=== PATIENT | female | born 1970 | race Caucasian/White ===

== ENCOUNTER 2019-09-28 09:10 | Emergency (ER) | payer OTHER, SELFPAY ==
[2019-09-28] VITALS (14 sets, daily range): BP systolic 131–171; BP diastolic 72–100; PULSE 76–104; RESP 12–26; TEMP 36.2; O2SAT 97–100
--- NOTE | ~2019-09-28 | XR_ITS ---
EXAMINATION: XR chest 2V DATE: 09/28/2019 09:55 INDICATION: Palpitations. TECHNIQUE: Frontal and lateral views of the chest were obtained. COMPARISON: Chest single view 12/10/2007 FINDINGS: The chest demonstrates clear lungs without pneumonia, pleural effusion, or pneumothorax. Th e heart size is normal. IMPRESSION: 1. No acute cardiopulmonary disease. Reviewed, dictated and finalized at location A. NESS ANALYTICS ANALYST
--- NOTE | 2019-09-28 09:27 | ECG_ITS ---
Measurements Intervals [place] Rate: 98 P: 39 NE: 128 QRS: 17 QRSD: 78 T: 13 QT: 357 QTc: 456 Interpretive Statements SINUS RHYTHM BORDERLINE ST-T WAVE ABNORMALITY- INF/LAT LEADS BASELINE WANDER- III, V4-V6 BORDERLINE ECG Electronically Signed On 09-28-2019 10:08:19 BATH STEWARD/STEWARDESS by Bennie Raphael D.O.
--- NOTE | 2019-09-28 09:31 | ED.ARRPALP ---
HPI - Arrhythmia/Palpitations General Chief Complaint: Arrhythmia/Palpitations Stated Complaint: palpitations Time Seen by Provider: 09/28/19 09:25 Source: patient Mode of arrival: ambulatory Limitations: no limitations History of Present Illness HPI narrative: Pt is a 49 y/o female who presents to the ED with c/o palpitations for a week. Pt has a H/o an irregular heartbeat but it has never lasted this long for her. She states that she gets it every few minutes and it goes away. Pt notes that this morning the palpitations were more intense and she felt it going up to her throat. She denies vomiting, CP, SOB, or lightheadedness. She states that she has worn a Holter monitor in the past but she does not have a PCP or a regulatory consultant that she follows up with. Pt notes that she had the stomach flu about 3 weeks ago that only lasted 3 days and she feels better. complaint: irregular heart beat Onset (ago): week(s) (1) Duration: constant Severity: similar to previous episodes Associated symptoms: denies other symptoms Related Data Home Medications Medication Instructions Recorded Confirmed alprazolam 09/28/19 Allergies Allergy/AdvReac Type Severity Reaction Status Date / Time Penicillins Allergy Mild RASH Unverified 09/28/19 09:24 Review of Systems Review of Systems: Narrative: CARDIOVASCULAR: Reports palpitations. Denies CP RESPIRATORY: Denies dyspnea. GASTROINTESTINAL: Denies vomiting NEUROLOGIC: Denies lightheadedness All systems reviewed & are unremarkable except as noted in HPI and below PMFSH Past Medical History Medical History (Updated 09/28/19 @ 10:34 by Sarah Sloan MD) Anxiety Irregular heart rate Seasonal allergies Surgical History Surgical History (Updated 09/28/19 @ 09:56 by Beba Bosch) No significant past surgical history Social History Social History (Updated 09/28/19 @ 09:56 by Beba Bosch) Smoking status: Never smoker Gender identity (if verbalized by the patient): Female Exam Narrative: Exam Narrative: GENERAL: Well-appearing, well-nourished, and in no acute distress. HEAD: Normocephalic, atraumatic. EYES: PERRLA and EOMI. ENT: Nares clear, no rhinorrhea or epistaxis. Mucous membranes moist. NECK: Supple. CHEST: Clear to auscultation. No respiratory distress. HEART: Regular rate and rhythm. No murmur heard. Normal peripheral pulses. ABDOMEN: Soft, nontender, nondistended, normal active bowel sounds. EXTREMITIES: Normal range of motion. No edema. SKIN: Warm, dry, no rash. NEURO: No focal deficits. Alert and oriented X3. Course Course Emergency Course: Patient presents to the emergency department for evaluation of palpitations. Patient has a longstanding history of these, states in the past she has not been found to have any arrhythmia. Patient denies any chest pain or shortness of breath. At the time of initial assessment, ABCs are intact, vital signs are stable. Patient has a PVC about once every 5-10 beats on the telemetry. EKG without any acute ischemic findings. Initial troponin is normal. As patient symptoms have been present for a week, we will arrange cardiology follow-up, and she may see them for her PVCs which are symptomatic. Patient without any electrolyte derangements. I do not suspect any medications or ingestion causing this. Patient was then discharged home in stable condition. Vital Signs Vital signs: Vital Signs Temperature 36.2 C L 09/28/19 09:18 Pulse Rate 104 H 09/28/19 09:18 Respiratory Rate 18 09/28/19 09:18 Blood Pressure 155/100 H 09/28/19 09:18 Pulse Oximetry 100 09/28/19 09:18 Temperature 36.2 C L 09/28/19 09:18 Pulse Rate 80 09/28/19 10:45 Respiratory Rate 21 H 09/28/19 10:45 Blood Pressure 131/80 09/28/19 10:45 Pulse Oximetry 97 09/28/19 10:45 MDM - Arrhythmia/Palpitations Lab Data Result diagrams: 09/28/19 09:32 09/28/19 10:00 Labs: Lab Results 09/28/19
[2019-09-28] MEDS: ASPIRIN 81 MG CHEWABLE TABLET 324 MG PO (09:39)
[2019-09-28 09:46] LABS: Basophils Absolute Auto 0.1 K/mm3 (0.0-0.1); Basophils Percent Auto 0.7 % (0.2-1.2); Eosinophils Absolute Auto 0.2 K/mm3 (0-0.3); Eosinophils Percent Auto 1.6 % (0-4.4); Hematocrit 41.6 % (37.0-47.0); Hemoglobin 13.9 g/dL (12.0-15.0); Immature Granulocyte Absolute 0.05 K/mm3 (0.00-0.031); Immature Granulocyte Percent A 0.5 % (0-0.5); Lymphocytes Percent Auto 25.6 % (18.3-44.2); Mean Corpuscular HGB Conc 33.4 g/dl (32-36); Mean Corpuscular Volume 92.7 fl (80-100); Mean Platelet Volume 10.9 fl (7.4-10.4); Monocytes Absolute Auto 0.9 K/mm3 (0.1-0.6); Monocytes Percent Auto 7.8 % (2.6-8.5); Neutrophils Percent Auto 63.8 % (45.5-73.1); Platelet Count Result 334 k/mm3 (150-375); Red Blood Count 4.49 M/mm3 (4.2-5.4); Red Cell Distribution Width 13.3 % (11.5-14.5); White Blood Count 10.9 K/mm3 (4.5-10.0)
--- NOTE | 2019-09-28 09:50 | PC.NURSE ---
Pt resting in stretcher at, even chest rise and fall observed. Pt vitals signs stable, Pt A&Ox4, denies any concerns at this time. Call light within reach. Will continue to monitor.
[2019-09-28 09:53] LABS: INR 0.9; Prothrombin Time 11.8 Seconds (11.1-14.7)
[2019-09-28 09:54] LABS: Partial Thromboplastin Time 27.1 SECONDS (22.3-36.8)
[2019-09-28 10:27] LABS: Blood Urea Nitrogen 12 mg/dL (7-17); Calcium 9.1 mg/dL (8.4-10.2); Carbon Dioxide 21 mmol/L (22-30); Chloride 103 mmol/L (98-107); Estimated CRCL calculation 104 ml/min; Estimated Glomerular Filt Rate > 60; Glucose 94 mg/dL (65-105); Sodium 141 mmol/L (137-145)
[2019-09-28 10:29] LABS: Troponin I < 0.012 ng/mL (0.000-0.034)
== END 2019-09-28 11:33 | disposition home or self-care (01) ==
PROVIDERS: Emergency Provider Emergency Medicine
DX: R00.2 Palpitations (principal); I49.3 Ventricular premature depolarization; F41.9 Anxiety disorder, unspecified; R94.31 Abnormal electrocardiogram [ECG] [EKG]
CPT/HCPCS: 36415; 71046; 80048; 84484; 85025; 85610; 85730; 93005; 99284; A9270

== ENCOUNTER 2020-06-07 12:50 | Outpatient (CLI) | payer OTHER, SELFPAY ==
--- NOTE | ~2020-06-07 | MM_ITS ---
EXAMINATION: MM screening [facility] BI w sabiha HISTORY: Screening mammogram TECHNIQUE: Craniocaudal and mediolateral oblique 3-D tomosynthesis images were obtained and synthetic 2-D images were generated. CAD analysis was submitted and interpreted. COMPARISON: 04/06/2019, 11/06/2015, 10/12/2012 BREAST PARENCHYMAL COMPOSITION: There are scattered areas of fibroglandular density. FINDINGS: There is no evidence of suspicious mass, calcification, or architectural distortion to sugg est malignancy in either breast. There has been no suspicious interval change. IMPRESSION: 1. No mammographic evidence of malignancy. 2. Recommend routine screening mammography in one year. BI-RADS Category 1: Negative Reviewed, dictated and finalized at location A. ER MACHINE
--- NOTE | ~2020-06-07 | DEXA_ITS ---
Bone Density Report Name: Ghislaine Blum Age: 49 Sex: Female Ethnicity: White Date of : 1970 Indication: height loss; Referring Provider: CARLOS, LAUREL Study: Bone densitometry was performed. Exam Date: June 07, 2020 Accession number: [id number] Bone Density: Region BMD T-score Z-score Classification AP Spine (L1, L3) 1.134 1.1 1.9 Normal Femoral Neck (Left) 0.934 0.8 1.6 Normal Total Hip (Left) 1.151 1.7 2.2 Normal Total Hip Bilateral Avg 1.169 1.9 2.4 Normal Femoral Neck (Right) 0.975 1.1 2.0 Normal Total Hip (Right) 1.186 2.0 2.5 Normal World Health Organization criteria for BMD impression classify patients as: Normal (T-score at or above -1.0), Osteopenia (T-score between -1.0 and -2.5), or Osteoporosis (T-score at or below -2.5). 10-year Fracture Risk: FRAX not reported because: Premenopausal woman All T-scores for Spine Total, Hip Total, Femoral Neck at or above -1.0 Clinical Information Provided by Patient: Patient maximum height was 66 No regular weight bearing exercise Drinks caffeinated beverages Onset of menses at age 9 Premenopausal Number of children 1 Impression: The patient's bone mass is within expected range for age, gender and ethnicity. Discussion: BONE DENSITY IS WITHIN EXPECTED LIMITS FOR AGE, SEX AND RACE. Bone density is within expected limits for age, sex and race at all sites measured. The patient should follow a healthful lifestyle (good nutrition with adequate calcium and vitamin D, and appropriate weight-bearing exercise). Follow-Up: Consider repeating this study in 5 years or sooner if there is some new clinical indication. Reported by: [facility] on 06/07/2020 1:20:00 PM. Reviewed, dictated and finalized at location AJose MORALES
== END 2020-06-07 12:51 | disposition home or self-care (01) ==
LOC: ANHIMG 12:54
PROVIDERS: PCP Nurse Practitioner Adult Health; Visit Provider Nurse Practitioner Adult Health
DX: Z12.31 Encounter for screening mammogram for malignant neoplasm of breast (principal); Z13.820 Encounter for screening for osteoporosis
CPT/HCPCS: 77063; 77067; 77080

== ENCOUNTER 2022-09-08 00:50 | Observation (INO) | payer OTHER, SELFPAY ==
[2022-09-08] VITALS (26 sets, daily range): BP systolic 109–149; BP diastolic 63–85; PULSE 71–100; RESP 12–28; TEMP 36.4–37.2; O2SAT 96–100
--- NOTE | ~2022-09-08 | CT_ITS ---
EXAMINATION: CTA chest abdomen pelvis DATE: 09/08/2022 03:26 INDICATION: Left chest pain radiating to back and left arm TECHNIQUE: Computed tomography angiography (CTA) of the chest was performed with 100 mL Omnipaque-350 intravenous contrast timed to evaluate the pulmonary arteries. Coronal maximum intensity projection 3D-reconstructions were created by the technologist. Automated exposure control and iterative reconst ruction technique were employed. Exam dose: 1182.07 mGy-cm total exam DLP. COMPARISON: September 08, 2022 2 view chest FINDINGS: 4 mm right lower lobe pulmonary nodule. If there is low risk, no follow-up is necessary. For high ris k patients with smoking history or other known risk factors,(s) CT chest follow-up in 12 months november e performed. No pulmonary infiltrate or consolidation or pulmonary mass lesion is noted otherwise. Normal heart size. No thoracic aortic aneurysm or dissection. No hilar or mediastinal mass lesion or lymphadenopathy. No pericardial or pleural effusion. Small sliding hiatal hernia. No hepatic, splenic, pancreatic, and adrenal or right renal space-occupying mass lesion. 3 cm exophytic lower pole left renal cyst. No urinary tract calculus or hydroureteronephrosis. The urinary bladder is unremarkable. 11 mm AP dimension of the endometrial cavity. The uterus measures approximately 9.5 cm height, 5.7 cm anteroposterior dimension. No bowel obstruction, bowel wall thickening, pneumatosis or intraperitoneal free air. Normal caliber of the abdominal aorta. No intraperitoneal or retroperitoneal or pelvic mass lesion or adenopathy or ascites. Included skeletal structures are unremarkable; no suspicious osteolytic or osteoblastic lesions are n oted. IMPRESSION: 4 mm right lower lobe nodule; if there is high risk, consider CT chest follow-up examination 12 month s Small sliding hiatal hernia 3 cm exophytic lower pole left renal cyst Endometrial cavity measures up to 11 mm AP dimension; clinical correlation is recommended Reviewed, dictated and finalized at Location A. Reviewed, dictated and finalized at location A. OSIVE ORDNANCE MANAGER IMPRESSION: 4 mm right lower lobe nodule; if there is high risk, consider CT chest follow-u p examination 12 months Small sliding hiatal hernia 3 cm exophytic lower pole left renal cyst Endometrial cavity measures up to 11 mm AP dimension; clinical correlation is r ecommended
--- NOTE | ~2022-09-08 | XR_ITS ---
XR chest 2V DATE: 09/08/2022 01:31 INDICATION: Left chest pain radiating to back and left arm TECHNIQUE: PA and lateral views COMPARISON: None FINDINGS: Normal heart size. No hilar or mediastinal enlargement. The lungs are normally inflated and clear of infiltrate or consolidation. No pleural effusion or pulmonary vascular congestion or pneumo thorax. IMPRESSION: Negative Reviewed, dictated and finalized at location A. L DOCUMENT SPECIALIST IMPRESSION: Negative
--- NOTE | ~2022-09-08 | NM_ITS ---
EXAMINATION: NM stress w perf spect multi DATE: 09/09/2022 11:30 INDICATION: Chest pain. TECHNIQUE: Rest images were obtained following intravenous administration of 11.5 mCi Tc99m tetrofosm in (Myoview). The patient performed an exercise activity. At peak exercise, 34.9 mCi Tc99m tetrofosmi n (Myoview) was administered intravenously, and stress images were obtained. Data was reconstructed i nto short axis and horizontal and vertical long axis SPECT images. Gated SPECT images were also obtai alseha. COMPARISON: Chest CT 09/08/2022 FINDINGS: There is no definite reversible or fixed perfusion abnormality to suggest ischemia or infar ction. There is no segmental wall motion abnormality. Left ventricular ejection fraction measures > 70%. IMPRESSION: 1. No definite ischemia or infarct. 2. Normal left ventricular ejection fraction measuring >70%. Reviewed, dictated and finalized at location A. NER FIXER
--- NOTE | 2022-09-08 00:51 | ECG_ITS ---
Measurements Intervals [place] Rate: 87 P: 31 DE: 140 QRS: 16 QRSD: 87 T: 29 QT: 357 QTc: 430 Interpretive Statements SINUS RHYTHM NONSPECIFIC ST CHANGES COMPARED TO ECG 09/28/2019 09:19:41 NO SIGNIFICANT CHANGE Electronically Signed On 09-08-2022 8:29:41 STATISTICAL CLERK ADVERTISING by Venecia Tong M.D.
[2022-09-08 01:18] LABS: Basophils Absolute Auto 0.1 K/mm3 (0.0-0.1); Basophils Percent Auto 0.7 % (0.2-1.2); Eosinophils Absolute Auto 0.3 K/mm3 (0-0.3); Eosinophils Percent Auto 2.6 % (0-4.4); Hematocrit 40.1 % (37.0-47.0); Hemoglobin 13.3 g/dL (12.0-15.0); Immature Granulocyte Absolute 0.04 K/mm3 (0.00-0.031); Immature Granulocyte Percent A 0.4 % (0-0.5); Lymphocytes Absolute Auto 3.35 K/mm3 (0.9-3.2); Lymphocytes Percent Auto 33.6 % (18.3-44.2); Mean Corpuscular HGB Conc 33.2 g/dl (32-36); Mean Corpuscular Hemoglobin 31.1 pg (26-34); Mean Corpuscular Volume 93.7 fl (80-100); Mean Platelet Volume 10.2 fl (7.4-10.4); Monocytes Absolute Auto 0.6 K/mm3 (0.1-0.6); Monocytes Percent Auto 5.9 % (2.6-8.5); Neutrophils Absolute Auto 5.7 K/mm3 (1.3-6.7); Neutrophils Percent Auto 56.8 % (45.5-73.1); Platelet Count Result 298 k/mm3 (150-375); Red Blood Count 4.28 M/mm3 (4.2-5.4)
[2022-09-08 01:33] LABS: Alanine Aminotransferase 22 U/L (6-35); Albumin Level 4.6 g/dL (3.5-5.1); Alkaline Phosphatase 89 U/L (38-126); Anion Gap 7 mmol/L (8-16); Aspartate Amino Transferase 29 U/L (14-36); Bilirubin,Total 0.5 mg/dL (0.2-1.3); Blood Urea Nitrogen 18 mg/dL (7-17); Calcium 9.2 mg/dL (8.4-10.2); Carbon Dioxide 27 mmol/L (22-30); Chloride 104 mmol/L (98-107); Estimated Glomerular Filt Rate > 60; Glucose 94 mg/dL (65-110); Lipase 150 U/L (23-300); Potassium 3.9 mmol/L (3.4-5.0); Sodium 138 mmol/L (137-145)
--- NOTE | 2022-09-08 01:43 | ED.GENADULT ---
HPI - General Adult General Chief complaint: Chest Pain Stated complaint: Chest pain Time Seen by Provider: 09/08/22 01:28 History of Present Illness HPI narrative: The 52-year-old female presenting ED with a chief complaint of chest pain. The pain started at 12:30 p.m. tonight. the chest pain is describes an achy pain that radiates to her back and her left arm. When it 1st started she describes weakness in her left arm that has since resolved. It was originally 8/10 in intensity but is improving. She has never experienced pain like this before and there is no alleviating or exacerbating factors. Chest pain was associated with diaphoresis. There was no vomiting, fever, chills, productive cough, the patient has said that her brother was recently diagnosed with an aortic dissection. Patient notes that she has spent the weekend at a sporting event sitting in on a hard wooden bench. She has a history of chronic back pain. Patient's leadership coach is Dr. Samuels. Related Data Home Medications Medication Instructions Recorded Confirmed alprazolam 0.5 mg tablet 09/28/19 lisinopril 10 mg tablet mg 09/08/22 montelukast 10 mg tablet mg 09/08/22 Allergies Allergy/AdvReac Type Severity Reaction Status Date / Time Penicillins Allergy Mild RASH Verified 09/08/22 01:02 PENDING SALE TO [facility] Past Medical History Medical History Anxiety Irregular heart rate Seasonal allergies Surgical History Surgical History No significant past surgical history Social History Social History Smoking status: Never smoker Gender identity (if verbalized by the patient): Female Exam Narrative: APPEARANCE: No apparent distress. patient is pleasant polite during the interview Head: atraumatic. EYES: EOMI, NOSE: Atraumatic NECK: Trachea midline RESPIRATORY: No increased rate of breathing, clear to auscultation in all phillips CARDIOVASCULAR: RRR,, equal pulses in all 4 extremities ABDOMINAL: Non-distended MUSCULOSKELETAl: No obvious deformities NEURO: Alert. Cranial nerves 2-12 grossly intact. Sensation light touch, motor function cerebellar function intact for 4 extremities. Gait exam was normal. SKIN:: Warm, dry. Normal color PSYCHIATRIC: Normal affect Course Vital Signs Vital signs: Vital Signs Temperature 97.5 F L 09/08/22 00:58 Pulse Rate 86 09/08/22 00:58 Respiratory Rate 19 09/08/22 00:58 Blood Pressure 149/81 H 09/08/22 00:58 Pulse Oximetry 100 09/08/22 00:58 Oxygen Delivery Room Air 09/08/22 00:58 Temperature 97.5 F L 09/08/22 00:58 Pulse Rate 72 09/08/22 02:46 Respiratory Rate 15 09/08/22 02:46 Blood Pressure 118/63 09/08/22 02:46 Pulse Oximetry 98 09/08/22 02:46 Oxygen Delivery Room Air 09/08/22 02:30 Medical Decision Making MDM Narrative Medical decision making narrative: -Presentation: 52-year-old female presenting to ED with chest and back pain. Family history of aortic dissection. ACS workup, CTA been ordered. -DDX includes but is not limited to: ACS, muscle strain, aortic dissection, pneumonia -Co-morbidities complicating care: chronic back pain, anxiety, family history of aortic dissection, hypertension -Social determinants of health: patient lives at home with her -External Chart Review: none -Hx from independent Sources: -Discussion of Management/Consultants: none -Independent interpretation of studies: CBC BMP within normal limits. Initial troponin was undetectable. Second troponin trended up to 0.015 but was still within normal range. Chest x-ray was negative for acute cardiopulmonary process My interpretation is CTA showed no evidence of aortic dissection or pulmonary embolism or pneumonia. Official read will be performed in the morning. Independent E
[2022-09-08 01:44] LABS: Troponin I < 0.012 ng/mL (0.000-0.034)
[2022-09-08 04:33] LABS: Troponin I 0.015 ng/mL (0.000-0.034)
[2022-09-08 04:43] LABS: Prothrombin Time 12.8 Seconds (11.1-14.7)
[2022-09-08] MEDS: ASPIRIN 81 MG CHEWABLE TABLET 324 MG PO (05:28)
[2022-09-08 07:41] LABS: Troponin I < 0.012 ng/mL (0.000-0.034)
[2022-09-08 07:51] LABS: Influenza A QL RT-PCR Negative (Negative); Influenza B QL RT-PCR Negative (Negative); SARS-CoV-2 RNA PCR Negative
--- NOTE | 2022-09-08 11:32 | PM.IMHP ---
H&P: HPI History of Present Illness Date/Time: 09/08/22 11:32 Chief Complaint: chest Pain Narrative: This is a 52-year-old female with past medical history of frequent PVCs anxiety disorder chronic back pain presents with complaint of chest pain that woke her up in the middle the night last night. She reports that the chest pain is precordial in location and radiated to her left arm severe intensity by teen. The pain is described as achy pain that radiated to her back at about the same location on the left side thoracic area. She reports she does have neck problem and gives to chiropractor almost every week. For past few years she has not any imaging on her neck in the past the pain however was different from which she use to have pain. It is chest pain is associated with diaphoresis with no vomiting or nausea. There is no fever chills or cough. She also mentions a family history of significant coronary artery disease. Her brother was also recently diagnosed aortic dissection. She also had been to [employer] a in a sporting event and was sitting in a [employer] in [place] and was driving through this trip. She has seen Dr. Aavlos for her heart. She is not on any medications. She has not had any stress test done in the past. Review of Systems Review of Systems: - CONSTITUTIONAL: Denies weight loss, fever and chills. - HEENT: Denies changes in vision and hearing - RESPIRATORY: Denies SOB and cough. - CV: Denies palpitations and Reports CP. - GI: Denies abdominal pain, nausea, vomiting and diarrhea. - : Denies dysuria and urinary frequency. - MSK: Denies myalgia and joint pain. - SKIN: Denies rash and pruritus. - NEUROLOGICAL: Denies headache and syncope. - PSYCHIATRIC: Denies recent changes in mood. Denies anxiety and depression. [facility] Past Medical History Medical History Anxiety Irregular heart rate Seasonal allergies Surgical History Surgical History No significant past surgical history Social History Social History Smoking status: Never smoker Gender identity (if verbalized by the patient): Female Meds Home Medications and Allergies Home Medications Medication Instructions Recorded Confirmed Type alprazolam 0.5 mg tablet 0.5 mg PO PRN PRN Anxiety 09/28/19 09/08/22 History cetirizine 10 mg tablet (Zyrtec) 10 mg PO DAILY 09/08/22 09/08/22 History famotidine 20 mg tablet (Pepcid) 20 mg PO PRN PRN Acid Reflux 09/08/22 09/08/22 History fluticasone propionate 50 2 spray intranasal DAILY 09/08/22 09/08/22 History mcg/actuation nasal spray,suspension lisinopril 10 mg tablet 10 mg PO DAILY 09/08/22 09/08/22 History montelukast 10 mg tablet 10 mg PO DAILY 09/08/22 09/08/22 History Allergies Allergy/AdvReac Type Severity Reaction Status Date / Time Penicillins Allergy Mild RASH Verified 09/08/22 10:26 Vital Signs Vital Signs - 24 hr 09/08/22 00:58 09/08/22 01:17 09/08/22 01:21 Temperature 97.5 F L Pulse Rate 86 85 Respiratory Rate 19 28 H Blood Pressure 149/81 H 135/85 Pulse Oximetry 100 99 100 Oxygen Delivery Room Air Room Air 09/08/22 01:23 09/08/22 01:18 09/08/22 01:59 Temperature Pulse Rate 85 81 78 Respiratory Rate 18 17 Blood Pressure 135/85 109/66 Pulse Oximetry 98 100 Oxygen Delivery 09/08/22 02:01 09/08/22 02:31 09/08/22 02:30 Temperature Pulse Rate 71 75 75 Respiratory Rate 19 14 17 Blood Pressure 119/72 120/65 120/65 Pulse Oximetry 99 99 99 Oxygen Delivery Room Air 09/08/22 02:46 09/08/22 02:47 09/08/22 04:36 Temperature Pulse Rate 72 74 76 Respiratory Rate 15 16 19 Blood Pressure 118/63 Pulse Oximetry 98 98 98 Oxygen Delivery 09/08/22 04:45 09/08/22 05:00 09/08/22 05:15 Temperature Pulse Rate 79 90 81 Respiratory Rate 16 19 17 Blood Pres
--- NOTE | 2022-09-08 15:40 | PM.CNCAR ---
Assessment and Plan Assessment and plan (1) Chest pain: Code(s): R07.9 - Chest pain, unspecified Status: Acute Assessment and Plan: Patient had about an hour of chest pain early this morning. 1 troponin was slightly above normal. EKG has some changes but these appear chronic. She has risk factors for CAD with hypertension, and a family history as well as borderline cholesterol problems. She was concerned about her risk of aortic dissection, since her brother had that last fall, but her CT did not show any evidence of aneurysm or dissection. -- Agree with ischemia evaluation. Patient can walk on the treadmill well so will schedule a stress Cardiolite. -- Most likely this is musculoskeletal chest pain (2) Hypertension: Code(s): I10 - Essential (primary) hypertension Status: Acute Assessment and Plan: controlled on medication (3) Family history of premature CAD: Code(s): Z82.49 - Family history of ischemic heart disease and other diseases of the circulatory system Status: Acute Assessment and Plan: continue primary prevention History of Present Illness History of Present Illness Consult date/time: 09/08/22 15:40 Reason For Visit: Mod Risk CP Narrative: Ghislaine Blum is a 52-year-old female whom we were asked to see at the request of Dr. Pompa for advice and opinion regarding her chest pain in consultation. She is followed by Dr. Avalos for hypertension, palpitations, PVCs and family history of aortic dissection. On her last office visit,Her blood pressure was controlled and she had infrequent palpitations. There was discussion of obtaining an echo in perhaps a CT because of her brother's recent aortic dissection and concern about familial predisposition. Ms Blum has chronic intermittent chest pains, arm pains, and back pains. The patient developed left parasternal chest pain at 12:30 a.m. which awoke her from sleep and radiated to the left paravertebral areas well as the left arm. It was a strong ache.This was of concern because she does not get all these types of pain at the same time, and was more intense than usual. There were no associated symptoms , except for some sweatiness. The patient arrived to emergency room around 130 and her discomfort resolved after an aspirin. Troponins are 0.012, 0.015 and 0.012. She has been busy; her daughter is in wrestling and she has been driving back and forth to [place] for the [employer]. She also does lifting at her job, which is working at the historic [employer] in [place]. Normally she can walk fast exert with no particular problems with any chest discomfort but she may have some dyspnea which she blames on her weight. Review of Systems Constitutional: Constitutional: Denies fever(s) Eyes: Eyes: Reports no additional eye complaints ENT: Denies epistaxis Cardiovascular: Cardiovascular: Denies chest pain, Denies pedal edema, Denies lightheadedness and Denies dyspnea Respiratory: Respiratory: Denies chest congestion and Denies dyspnea Gastrointestinal: Gastrointestinal: Denies abdominal pain and Denies hematochezia Musculoskeletal: Musculoskeletal: Reports back pain, Reports myalgias and Reports neck pain Integumentary/Breasts: Skin/Breast: Reports system reviewed and no additional complaints, except as docu Neurologic: Reports system reviewed and no additional complaints, except as documented, Denies behavioral changes and Denies confusion Psychiatric: Psychiatric: Denies behavioral changes and Denies confusion [facility] Past Medical History Medical History (Updated 09/08/22 @ 17:39 by Venecia Tong MD) Anxiety Family history of premature CAD Hypertension Irregular heart rate Seasonal allergies Surgical History Surgical History No significant past surgical history Family History Family History (Updated 09/08/22 @ 1
[2022-09-09] VITALS: PULSE 75
--- NOTE | 2022-09-09 | EST_ITS ---
Patient Info Name: Ghislaine Blum Age: 52 years : 1970 Gender: Female Ht: 65 in Wt: 219 lbs BSA: 2.18 m2 HR: 79 bpm BP: 143 / 87 mmHg Heart Rhythm: Sinus Rhythm Exam Date: 09/09/2022 10:22 AM Exam Location: [facility] Stress Patient Status: Inpatient Admit Date: 09/08/2022 Staff Ordering Physician: Venecia Tong MD Attending Provider: Cali Harrington MD Exercise Technologist: Renetta Goins CT Nurse: CANDI FOOTE Exam Type: CA stress test treadmill w NM Study Info Indications R07.9 - Chest pain, unspecified A nuclear stress test was performed. Summary 1. Normal sinus rhythm. 2. Resting ST/T wave changes. 3. Minor exaggeration of resting ST segment abnormality not diagnostic of ischemia. 4. Clinically and electrocardiographically negative exercise stress test to 98% of age predicted maximum heart rate. 5. Myocardial perfusion imaging results to be reported by Radiology. Protocol: [facility] Stress ECG Details Stage: REST Duration (min): 1 min : 1 sec Speed (mph): 0.0 Grade (%): 0 HR (bpm): 86 SBP (mmHg): 143 DBP (mmHg): 87 METS: --- Stage: REST Duration (min): 9 min : 26 sec Speed (mph): 0.0 Grade (%): 0 HR (bpm): 82 SBP (mmHg): 143 DBP (mmHg): 87 METS: --- Stage: STAGE 1 Duration (min): 1 min : 0 sec Speed (mph): 1.7 Grade (%): 10 HR (bpm): 108 SBP (mmHg): 143 DBP (mmHg): 87 METS: --- Stage: STAGE 1 Duration (min): 2 min : 0 sec Speed (mph): 1.7 Grade (%): 10 HR (bpm): 125 SBP (mmHg): 143 DBP (mmHg): 87 METS: --- Stage: STAGE 1 Duration (min): 3 min : 0 sec Speed (mph): 1.7 Grade (%): 10 HR (bpm): 124 SBP (mmHg): 171 DBP (mmHg): 96 METS: --- Stage: STAGE 2 Duration (min): 1 min : 0 sec Speed (mph): 2.5 Grade (%): 12 HR (bpm): 135 SBP (mmHg): 171 DBP (mmHg): 96 METS: --- Stage: STAGE 2 Duration (min): 2 min : 0 sec Speed (mph): 2.5 Grade (%): 12 HR (bpm): 149 SBP (mmHg): 160 DBP (mmHg): 85 METS: --- Stage: STAGE 2 Duration (min): 3 min : 0 sec Speed (mph): 2.5 Grade (%): 12 HR (bpm): 148 SBP (mmHg): 160 DBP (mmHg): 85 METS: --- Stage: STAGE 3 Duration (min): 1 min : 0 sec Speed (mph): 3.4 Grade (%): 14 HR (bpm): 159 SBP (mmHg): 138 DBP (mmHg): 73 METS: --- Stage: STAGE 3 Duration (min): 1 min : 55 sec Speed (mph): 3.4 Grade (%): 14 HR (bpm): 163 SBP (mmHg): 138 DBP (mmHg): 73 METS: --- Stage: RECOVERY Duration (min): 0 min : 4 sec Speed (mph): 1.5 Grade (%): 0 HR (bpm): 164 SBP (mmHg): 138 DBP (mmHg): 73 METS: --- Stage: RECOVERY Duration (min): 1 min : 4 sec Speed (mph): 0.0 Grade (%): 0 HR (bpm): 142 SBP (mmHg): 138 DBP (mmHg): 73 METS: --- Stage: R
[2022-09-09 04:00] VITALS: PULSE 67
[2022-09-09 06:00] VITALS: BP 132/76; PULSE 91; RESP 16; TEMP 36.6; O2SAT 99
[2022-09-09 08:00] VITALS: PULSE 87
[2022-09-09] MEDS: MONTELUKAST SODIUM 10 MG TABLET PO (08:01)
[2022-09-09] MEDS: lisinopriL 10 MG TABLET PO (08:01)
[2022-09-09] MEDS: FLUTICASONE PROPIONATE 0.05% NA SPR 16 GM BTL (*BKC) 2 SPRAY NASAL (08:02)
[2022-09-09 12:00] VITALS: PULSE 87
--- NOTE | 2022-09-09 12:24 | PM.PNCARD ---
Progress Note: A&P Assessment and Plan (1) Chest pain: Code(s): R07.9 - Chest pain, unspecified Status: Acute Assessment and Plan: No recurrence of chest pain since admission -- Nuclear treadmill stress test negative for any ischemia, EF 70% -- Most likely this is musculoskeletal chest pain -- No further cardiac workup recommended (2) Hypertension: Code(s): I10 - Essential (primary) hypertension Status: Acute Assessment and Plan: controlled on medication (3) Family history of premature CAD: Code(s): Z82.49 - Family history of ischemic heart disease and other diseases of the circulatory system Status: Acute Assessment and Plan: continue primary prevention Subjective Date/time seen: 09/09/22 12:24 Cardiology follow up for chest pain Feeling well this morning. Has not had any recurrence of chest pain since coming to the hospital. No complaints of any kind Review of Systems Constitutional: Constitutional: Denies fever(s) Eyes: Eyes: Reports no additional eye complaints ENT: Denies epistaxis and Reports neck pain Cardiovascular: Cardiovascular: Denies chest pain, Denies pedal edema, Denies lightheadedness and Denies dyspnea Respiratory: Respiratory: Denies chest congestion and Denies dyspnea Gastrointestinal: Gastrointestinal: Denies abdominal pain and Denies hematochezia Musculoskeletal: Musculoskeletal: Reports back pain, Reports myalgias and Reports neck pain Integumentary/Breasts: Skin/Breast: Reports system reviewed and no additional complaints, except as docu Neurologic: Reports system reviewed and no additional complaints, except as documented, Denies behavioral changes and Denies confusion Psychiatric: Psychiatric: Denies behavioral changes and Denies confusion Exam Const: General: cooperative, healthy appearing and comfortable; No confusion Orientation/consciousness: oriented to person, patient oriented x3 and No confusion Eyes: EOM: EOMs intact bilaterally Neck: Thyroid: thyroid normal Carotids: no bruits Chest: Other: Resp: Effort & Inspection: normal respiratory effort Auscultation: clear to auscultation bilaterally Cardio: Rate: regular rate Rhythm: regular rhythm Other: intact dorsalis pedis pulses GI: Inspection: normal to inspection Skin: General skin exam: normal color and no rashes or lesions noted Neuro: General: oriented to person, patient oriented x3 and No confusion Extrem: Right lower extremity: no edema Left lower extremity: no edema Psych: Appearance: grossly normal Mental Status: mental status grossly normal Objective Data Vital Signs Vital Signs: Vital Signs - 24 hr 09/08/22 14:00 09/08/22 16:00 09/08/22 22:00 Temperature 36.6 C 37.2 C Pulse Rate 87 85 95 Respiratory Rate 18 16 Blood Pressure 127/71 143/74 H Pulse Oximetry 98 96 Oxygen Delivery 09/08/22 21:30 09/08/22 20:00 09/09/22 00:00 Temperature Pulse Rate 91 75 Respiratory Rate Blood Pressure Pulse Oximetry Oxygen Delivery Room Air 09/09/22 04:00 09/09/22 06:00 Temperature 36.6 C Pulse Rate 67 91 Respiratory Rate 16 Blood Pressure 132/76 Pulse Oximetry 99 Oxygen Delivery Intake/Output Intake/Output: Intake & Output 09/06/22 09/07/22 09/08/22 09/09/22 23:59 23:59 23:59 23:59 Intake Total 1230 100 Output Total 400 200 Balance 830 -100 Meds/Results Medications: Active Medications Generic Name Dose Route Start Last Admin Trade Name Freq PRN Reason Stop Dose Admin Acetaminophen 1,000 mg 09/08/22 18:27 Acetaminophen 500 Mg Tablet PO Q6H PRN Mild Pain (1-3) or Fever Alprazolam 0.5 mg 09/08/22 14:31 Alprazolam (*Crx) 0.5 Mg Tablet PO DAILY PRN Anxiety Famotidine 20 mg 09/08/22 14:31 Famotidine 20 Mg Tablet PO DAILY PRN Acid Reflux Fluticasone Propionate 2 spray 09/09/22 09:00 09/09/22 08:02 Flut
[2022-09-09 13:33] VITALS: BP 143/81; PULSE 85; RESP 18; TEMP 36.5; O2SAT 99
--- NOTE | 2022-09-09 13:55 | PM.DS ---
DS: Admitting Diagnosis Discharge Date 09/09/2022 Admitting Diagnosis chest pain DS: Discharge Diagnosis Discharge Diagnosis (1) Chest pain: Code(s): R07.9 - Chest pain, unspecified Status: Acute Plan # precordia Chest pain initial troponin negative EKG with some ST depressions V4 through V6 1 and aVL lateral leads however very subtle and unchanged compared to previous EKG. She was ruled out of acute coronary syndrome with negative troponins. He does have strong family history of coronary artery disease. She is a nonsmoker. Will check lipid profile. See was given 325 mg of aspirin in the ER. Her chest pain has typical/atypical symptoms. Discussed stress test with the patient which she is agreeable to. Will keep her nothing by mouth after midnight and do a stress test today. She already follows with cardiology and hence will consult Cardiology while she is inpatient For further direction. 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 She reports that the chest pain is precordial in location and radiated to her left arm severe intensity by teen.? The pain is described as achy pain that radiated to her back at about the same location on the left side thoracic area.? She reports she does have neck problem and gives to chiropractor almost every week.? For past few years she has not any imaging on her neck in the past the pain however was different from which she use to have pain.? It is chest pain is associated with diaphoresis with no vomiting or nausea.? There is no fever chills or cough.? She also mentions a family history of significant coronary artery disease.? Her brother was also recently diagnosed aortic dissection.? She also had been to puree a in a sporting event and was sitting in a hardware in branch and was driving through this? trip.? She has seen Dr. Avalos for her heart.? She is not on any medications.? She has not had any stress test done in the past. Hospital Course: patient cardiac stress test is essentially normal, seen by cardiology no further workup is recommended, patient is instructed to follow up with her primary care provider as soon as possible patient has and nodular on CT scan of the chest, radiologist recommended repeat scan in 12 months, there is also 11 mm endometrial cavity and patient is instructed to follow up with her planning engineer as soon as possible, patient is instructed if any symptoms redevelop to go to nearest emergency depart. Time Spent with Patient Time attestation: Total time spent providing and/or coordinating discharge services: Exam Narrative: moderately obese Patient is comfortable, NAD HEENT: eyes are clear and none icteric LUNGS: normal respiratory effort ABD: distended Lower extremities: no edema SKIN: nonjaundiced Neuro: grossly intact. Discharge Plan Discharge Attending physician on discharge: Jodie Byrne Consulting providers: Venecia Tong ; Cem Silvestre ; Aakash Mart ; Zachary Lentz V. ; Maribel Ivy Discharging Clinician: Jodie Byrne Patient Disposition: Home, Self-Care Activity: as tolerated Diet: heart healthy Discharge Instructions: patient cardiac stress test is essentially normal, seen by cardiology no further workup is recommended, patient is instructed to follow up with her primary care provider as soon as possible patient has and nodular and a CT scan of the chest, radiologist recommended repeat scan in 12 months, there is also 11 mm endometri
== END 2022-09-09 15:03 | disposition home or self-care (01) ==
LOC: ANHED 05:12 → ANH2MED 08:59
PROVIDERS: Admitting Provider Internal Medicine; Emergency Provider Emergency Medicine; PCP Nurse Practitioner Adult Health; Visit Provider Family Medicine
DX: R07.9 Chest pain, unspecified (principal); I10 Essential (primary) hypertension; R61 Generalized hyperhidrosis; G89.29 Other chronic pain; M54.9 Dorsalgia, unspecified; M54.2 Cervicalgia; I49.3 Ventricular premature depolarization; R91.1 Solitary pulmonary nodule; N28.1 Cyst of kidney, acquired; Z20.822 Contact with and (suspected) exposure to COVID-19; K44.9 Diaphragmatic hernia without obstruction or gangrene; F41.9 Anxiety disorder, unspecified; E66.9 Obesity, unspecified; Z68.35 Body mass index [BMI] 35.0-35.9, adult; Z79.51 Long term (current) use of inhaled steroids; Z79.899 Other long term (current) drug therapy; Z82.49 Family history of ischemic heart disease and other diseases of the circulatory system
CPT/HCPCS: 36415; 71046; 71275; 74174; 78452; 80053; 83690; 84484; 85025; 85610; 85730; 87636; 93005; 93017; 99285; A9270; A9502; G0378; Q9967

== ENCOUNTER → 2022-10-24 14:45 | Outpatient (CLI) | payer OTHER, SELFPAY ==
--- NOTE | ~2022-10-24 | US_ITS ---
EXAMINATION: US transvaginal DATE: 10/24/2022 15:20 INDICATION: Other specified abnormal uterine and vaginal bleeding, abnormal uterine bleeding TECHNIQUE: Multiple endovaginal sonographic images of the pelvis were obtained. COMPARISON: None. FINDINGS: The uterus measures 8.4 x 4.1 x 6.3 cm. The endometrial complex measures 9 mm. The right ov jina measures 2.2 x 1.4 x 1.9 cm. The left ovary measures 1.8 x 1.5 x 2.4 cm. There is normal vascular flow in the ovaries. There is no free fluid in the pelvis. IMPRESSION: 1. Endometrial thickening which may be due to hyperplasia, polyp, or malignancy. Endometrial sampling is recommended. Reviewed, dictated and finalized at location F. IMPRESSION: 1. Endometrial thickening which may be due to hyperplasia, polyp, or malignancy . Endometrial sampling is recommended.
== END ==
PROVIDERS: PCP Physician Assistant; Visit Provider Nurse Practitioner
DX: N93.8 Other specified abnormal uterine and vaginal bleeding (principal)
CPT/HCPCS: 76830

== ENCOUNTER → 2023-01-06 11:25 | Outpatient (CLI) | payer OTHER, SELFPAY ==
--- NOTE | ~2023-01-06 | MM_ITS ---
EXAMINATION: MM screening anival BI w sabiha HISTORY: Screening mammogram TECHNIQUE: Craniocaudal and mediolateral oblique 3-D tomosynthesis images were obtained and synthetic 2-D images were generated. CAD analysis was submitted and interpreted. COMPARISON: 06/03/2020, 04/06/2019, 11/06/2015 bilateral screening mammogram examinations BREAST PARENCHYMAL COMPOSITION: There are scattered areas of fibroglandular density. FINDINGS: Right breast: There is no evidence of suspicious mass, calcification, or architectural distortion to suggest malignancy in either breast. There has been no suspicious interval change. Left breast: Asymmetry opacities are noted in the posterior mid and outer left breast. Diagnostic lef t mammogram and left breast ultrasound examination are recommended. IMPRESSION: 1. Left breast mammographic asymmetries 2. Diagnostic left mammogram and left breast ultrasound examination are recommended BI-RADS Category 0: Incomplete: Needs additional imaging evaluation. Reviewed, dictated and finalized at location A. IMPRESSION: 1. Left breast mammographic asymmetries 2. Diagnostic left mammogram and left breast ultrasound examination are recomme nded BI-RADS Category 0: Incomplete: Needs additional imaging evaluation.
== END ==
PROVIDERS: PCP Physician Assistant; Visit Provider Nurse Practitioner
DX: Z12.31 Encounter for screening mammogram for malignant neoplasm of breast (principal); R92.8 Other abnormal and inconclusive findings on diagnostic imaging of breast
CPT/HCPCS: 77063; 77067

== ENCOUNTER 2023-01-22 19:24 | Emergency (ER) | payer OTHER, SELFPAY ==
[2023-01-22 19:31] VITALS: BP 132/80; PULSE 91; RESP 16; TEMP 36.7; O2SAT 98
--- NOTE | 2023-01-22 19:32 | ED.EXTPRO ---
HPI - Extremity Problem General Chief complaint: Extremity Problem,Nontraumatic Stated complaint: STEPPED ON NAIL L FOOT Source: patient Mode of arrival: ambulatory Limitations: no limitations History of Present Illness HPI Narrative: 52 y/o female presented for c/o stepping on a nail yesterday and needs tetanus updated. States the nail when through her shoe. Reports minimal foot tenderness at the puncture site. Denies redness, swelling, drainage, numbness, tingling or weakness. She cleansed the site with alcohol. Related Data Home Medications Medication Instructions Recorded Confirmed alprazolam 0.5 mg tablet 0.5 mg PO DAILY PRN Anxiety 09/28/19 01/22/23 cetirizine 10 mg tablet (Zyrtec) 10 mg PO DAILY 09/08/22 01/22/23 famotidine 20 mg tablet (Pepcid) 20 mg PO PRN PRN Acid Reflux 09/08/22 01/22/23 fluticasone propionate 50 2 spray intranasal DAILY 09/08/22 01/22/23 mcg/actuation nasal spray,suspension lisinopril 10 mg tablet 10 mg PO DAILY 09/08/22 01/22/23 montelukast 10 mg tablet 10 mg PO DAILY 09/08/22 01/22/23 Allergies Allergy/AdvReac Type Severity Reaction Status Date / Time penicillin G Allergy Unknown Rash Verified 01/22/23 19:37 Penicillins Allergy Unknown Rash Verified 01/22/23 19:37 pollen extracts Allergy Unknown Unknown Verified 01/22/23 19:37 Review of Systems Review of Systems: CONSTITUTIONAL: Denies body aches, fever, chills EYES: Denies visual changes ENT: Denies rhinorrhea, congestion CARDIOVASCULAR: Denies chest pain, palpitations, or edema. RESPIRATORY: Denies cough or dyspnea. GASTROINTESTINAL: Denies abdominal pain, nausea, vomiting, or diarrhea. SKIN: Reports left foot puncture wound Denies rash, itching MUSCULOSKELETAL: Denies back pain, joint pain, or myalgia. NEUROLOGIC: Denies headache, numbness, tingling, or weakness. All systems reviewed & are unremarkable except as noted in HPI and below PMFSH Past Medical History Medical History Anxiety Family history of premature CAD Hypertension Irregular heart rate Seasonal allergies Surgical History Surgical History No significant past surgical history Family History Family History Father Hypertension Patient's father is in good health, Onset Age: 77 Family history of diabetes mellitus in first degree relative Diabetes mellitus Family history of cardiovascular disease Mother Hypertension Patient's mother is in good health, Onset Age: 77 Family history of diabetes mellitus in first degree relative Diabetes mellitus Grandparent Carcinoma of colon, Onset Age: 88 Father Heart disease Had CABG in his 40s or 50s, stents, and of a heart attack Sibling Thoracic aortic dissection Social History Social History Smoking status: Never smoker Second hand tobacco smoke exposure: No Alcohol intake: current Gender identity (if verbalized by the patient): Female Comments At time of signature, I have reviewed and agree with nursing past medical, surgical, social and family history unless otherwise noted. Please see nursing chart for further information. There is no relevant family history pertinent to the presenting complaint Exam Narrative: GENERAL: Well-appearing EYES: PERRLA, conjunctivae clear NECK: Supple. CHEST: Speaks in full sentences. No respiratory distress. HEART: Regular rate and rhythm. Normal and equal peripheral pulses. EXTREMITIES: Left foot plantar surface with superficial puncture site at the 2nd MTP, no surrounding tenderness or induration. Left foot has normal strength and sensation, normal range of motion. No swelling, redness, or ecchymosis, No point tenderness. pulse palpable and equal bilaterally, skin warm, dry, pink. Capilla
[2023-01-22] MEDS: TETANUS,DIPHTHERIA,AC PERTUSSIS ADULT (0.5 ML) BOOSTRIX IM (19:38)
== END 2023-01-22 19:50 | disposition home or self-care (01) ==
PROVIDERS: Emergency Provider Nurse Practitioner Family; PCP Physician Assistant
DX: S91.332A Puncture wound without foreign body, left foot, initial encounter (principal); W45.0XXA Nail entering through skin, initial encounter; Z23 Encounter for immunization; I10 Essential (primary) hypertension; F41.9 Anxiety disorder, unspecified
CPT/HCPCS: 90471; 90715; 99213; G0463

== ENCOUNTER → 2023-02-10 08:44 | Outpatient (CLI) | payer OTHER, SELFPAY ==
--- NOTE | ~2023-02-10 | MMUS_ITS ---
EXAMINATION: MM diagnostic anival LT w sabiha, US breast LT limited HISTORY: Follow-up left breast asymmetries TECHNIQUE: Additional 3-D tomosynthesis images of the left breast were performed and synthetic 2-D im ages were generated. CAD analysis was submitted and interpreted. High resolution diagnostic left ger st ultrasound was performed. COMPARISON: Comparison to multiple prior studies sequentially, with oldest reviewed study dated 11/05. BREAST PARENCHYMAL COMPOSITION: Breast composed of scattered areas of fibroglandular density FINDINGS: MAMMOGRAPHIC FINDINGS: There is a persistent focal asymmetry medially in the left breast on CC view, not well visualized on medial lateral or spot MLO view. This asymmetry contain central lucency. There are no suspicious calc ifications or architectural distortion. ULTRASOUND: Limited left breast ultrasound: At 2:00, 6 cm from the nipple there is a 7 mm intramammary lymph node which likely corresponds to the area of mammographic concern. No suspicious masses to suggest malign sedrick. IMPRESSION: 1. Benign-appearing 7 mm lymph node at 2:00, 6 cm from the nipple likely corresponds to the mammograp hic finding. 2. Recommend 6 month follow-up diagnostic left mammogram and ultrasound BI-RADS category 3, probably benign findings. Reviewed, dictated and finalized at location A. IMPRESSION: 1. Benign-appearing 7 mm lymph node at 2:00, 6 cm from the nipple likely corres ponds to the mammographic finding. 2. Recommend 6 month follow-up diagnostic left mammogram and ultrasound BI-RADS category 3, probably benign findings.
== END ==
PROVIDERS: PCP Physician Assistant; Visit Provider Obstetrics & Gynecology Gynecology
DX: R92.8 Other abnormal and inconclusive findings on diagnostic imaging of breast (principal)
CPT/HCPCS: 76642; 77061; 77065; G0279

== ENCOUNTER 2023-08-29 09:10 | Outpatient (CLI) | payer OTHER, SELFPAY ==
--- NOTE | ~2023-08-29 | CT_ITS ---
EXAMINATION: CT chest abdomen pelvis w con DATE: 08/29/2023 09:42 INDICATION: Right lower lobe nodule, left kidney cyst TECHNIQUE: Transaxial computed tomographic images of the chest, abdomen, and pelvis were obtained aft er the administration of 100 cc of Omnipaque 350 intravenous contrast. The dose-length product (DLP) was 1257.61 mGy-cm. Automated exposure control and iterative reconstruction technique were employed. COMPARISON: 09/08/2022 FINDINGS: CHEST CT: A stable 4 mm nodule of the right lower lobe is consistent with granulomatous disease. There is minim al dependent atelectasis. The lungs are free of acute opacities. No pleural effusion or pneumothorax. No pathologically enlarged thoracic lymph nodes are identified. The heart size is normal. ABDOMEN/PELVIS CT: The liver, spleen, pancreas, gallbladder, and adrenal glands are normal. There is a 3.1 cm simple cys t of the left kidney. No pathologically enlarged abdominal or pelvic lymph nodes are identified. No f ree intraperitoneal gas or evidence of bowel obstruction. There is mild lumbar spondylosis. IMPRESSION: 1. Stable 4 mm nodule of the right lower lobe, consistent with old granulomatous disease. 2. Simple cyst of the left kidney. Reviewed, dictated and finalized at location F. 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 Stable 4 mm nodule of the right lower lobe, consistent with old granulomatou s disease. 2. Simple cyst of the left kidney.
[2023-08-29 09:29] LABS: Estimated Glomerular Filt Rate > 60
== END 2023-08-29 09:11 ==
LOC: MICIMG 09:11
PROVIDERS: PCP Family Medicine; Visit Provider Nurse Practitioner Family
DX: R91.1 Solitary pulmonary nodule (principal); N28.1 Cyst of kidney, acquired
CPT/HCPCS: 71260; 74177; Q9967

== ENCOUNTER → 2023-09-16 07:45 | Outpatient (CLI) | payer OTHER, SELFPAY ==
--- NOTE | ~2023-09-16 | MMUS_ITS ---
EXAMINATION: MM diagnostic anival LT w sabiha, US breast LT limited HISTORY: Follow-up left breast mass TECHNIQUE: Additional 3-D tomosynthesis images of the left breast were performed and synthetic 2-D im ages were generated. CAD analysis was submitted and interpreted. High resolution Limited left breast ultrasound was performed. COMPARISON: Comparison to multiple prior studies sequentially, with oldest reviewed study dated 11/05. BREAST PARENCHYMAL COMPOSITION: Not dense: There are scattered areas of fibroglandular density. FINDINGS: MAMMOGRAPHIC FINDINGS: The left breast is unchanged. Stable benign-appearing mass in the upper outer quadrant of the left br east with central lucency, most likely benign intramammary lymph node. ULTRASOUND: Limited left breast ultrasound: There is a benign-appearing lymph node 2:00, 6 cm from the nipple emery suring 8 mm, unchanged from prior study. IMPRESSION: 1. No evidence for malignancy in the left breast. Benign finding. 2. Routine yearly screening mammogram and regular clinical breast examination are recommended. BI-RADS Category 2: Benign finding(s). Reviewed, dictated and finalized at location A. 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 No evidence for malignancy in the left breast. Benign finding. 2. Routine yearly screening mammogram and regular clinical breast examination a re recommended. BI-RADS Category 2: Benign finding(s).
== END ==
PROVIDERS: PCP Obstetrics & Gynecology Gynecology; Visit Provider Obstetrics & Gynecology Gynecology
DX: R92.8 Other abnormal and inconclusive findings on diagnostic imaging of breast (principal)
CPT/HCPCS: 76642; 77061; 77065; G0279

== ENCOUNTER 2024-10-13 15:21 | Outpatient (CLI) | payer OTHER, SELFPAY ==
--- NOTE | ~2024-10-13 | MM_ITS ---
EXAMINATION: MM screening anival BI w sabiha HISTORY: Screening TECHNIQUE: Craniocaudal and mediolateral oblique 3-D tomosynthesis images were obtained and synthetic 2-D images were generated. CAD analysis was submitted and interpreted. COMPARISON: Comparison to multiple prior studies sequentially, with oldest reviewed study dated 11/05. BREAST PARENCHYMAL COMPOSITION: Not dense: There are scattered areas of fibroglandular density. FINDINGS: There is no evidence of suspicious mass, calcification, or architectural distortion to sugg est malignancy in either breast. There has been no suspicious interval change. IMPRESSION: 1. No mammographic evidence of malignancy. 2. Recommend routine screening mammography in one year. BI-RADS Category 1: Negative Reviewed, dictated and finalized at location B.
== END 2024-10-13 15:22 | disposition home or self-care (01) ==
LOC: MICIMG 15:23
PROVIDERS: PCP Family Medicine; Visit Provider Obstetrics & Gynecology Gynecology
DX: Z12.31 Encounter for screening mammogram for malignant neoplasm of breast (principal)
CPT/HCPCS: 77063; 77067

== ENCOUNTER 2025-02-13 19:55 | Emergency (ER) | payer OTHER, SELFPAY ==
--- NOTE | ~2025-02-13 | XR_ITS ---
EXAMINATION: XR chest 2V Exam Date/Time: 02/13/2025 20:18 CDT HISTORY: back pain, heart racing, anxiety, sob Comparison: 09/08/2022. RESULT: Lines, tubes, and devices: None. Lungs and pleura: Clear. Cardiomediastinal silhouette: Stable. Other: No acute osseous or upper abdominal finding. IMPRESSION: No acute cardiopulmonary process. Reviewed, dictated and finalized at location K.
--- NOTE | 2025-02-13 19:56 | ECG_ITS ---
Test Date: 2025-02-13 20:08:11 Measurements Intervals [place] Rate: 108 P: 34 [place]: 148 QRS: 27 QRSD: 82 T: 39 QT: 342 QTc: 460 Interpretive Statements SINUS TACHYCARDIA NONSPECIFIC ST & T-WAVE ABNORMALITY ABNORMAL RHYTHM ECG No previous ECG available for comparison Electronically Signed On 02-14-2025 10:51:45 CDT by Corey Eagle M.D.
--- OUTSIDE RECORDS SUMMARY | 2025-02-13 19:57 | XMS_ITS | Clinical Summary ---
Author Organization [facility] Address [address] [place] [id number] Care Team Providers Care Bearing Ring Assembler Name Role Phone Liza Venessa Bojorquez NP Primary Care Provider + Allergies Active Allergy Reactions Criticality Noted Date Comments Cumin Diarrhea Low 12/10/2019 Penicillins Hives Medium 12/10/2019 Medications ALPRAZolam (XANAX) 0.5 mg tablet Take 1 tablet (0.5 mg total) by mouth daily as needed 1 Active lisinopriL (PRINIVIL,ZESTR IL) 10 mg tablet Take 1 tablet (10 mg total) by mouth daily 0 Active montelukast (SINGULAIR) 10 mg tablet Take 1 tablet (10 mg total) by mouth nightly at bedtime 1 Active folic acid (FOLVITE) 1 mg tablet Take 1,000 mcg by mouth daily 2 Active clobetasoL (TEMOVATE) 0.05 % external solution APPLY TOPICALLY TO THE SCALP EVERY DAY. NO MORE THAN 5 OUT OF 7 DAYS EVERY WEEK 3 Active cetirizine (ZyrTEC) 10 mg tablet Take 1 tablet (10 mg total) by mouth daily 4 Active buPROPion XL (WELLBUTRIN XL) 300 mg 24 hr tablet Take 1 tablet (300 mg total) by mouth every morning 4 Active Active Problems Problem Noted Date Diagnosed Date Other chest pain 12/25/2022 Family history of aortic dissection 06/17/2022 Hypertriglyceridemia, essential 06/04/2021 Essential hypertension 08/15/2020 Premature atrial contractions 02/08/2020 Symptomatic PVCs 12/10/2019 Palpitations 12/10/2019 Medical History Medical History Date Comments PVC's (premature ventricular contractions) Palpitations Family History Medical History Relation Name Comments Heart disease Father Relation Name Status Comments Father Social History Tobacco Use Types Packs/Day Years Used Date Smoking Tobacco: Never Smokeless Tobacco: Never Tobacco Cessation:Counseling Given: Not Answered Comments Unknown Sex and Gender Information Value Date Recorded Sex Assigned at Not on file Legal Sex Female 2:55 PM CDT Gender Identity Not on file Sexual Orientation Not on file Obstetrics History Last Filed Vital Signs Vital Sign Reading Time Taken Comments Blood Pressure 128/84 06/28/2024 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 Pulse 91 06/28/2024 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 Temperature 36.3 C (97.3 F) 08/15/2020 10:02 AM 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 Respiratory Rate 16 12/25/2022 2:04 PM CDT Oxygen Saturation 98% 06/28/2024 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 Inhaled Oxygen Concentration - - Weight 95.3 kg (210 lb) 06/28/2024 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 Height 165.1 cm (5' 5) 06/28/2024 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 Body Mass Index 34.95 06/28/2024 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 Plan of Treatment Health Maintenance Due Date Last Done Comments Breast Cancer Screening-Mammogram 1968 Cervical Cancer Screening 1968 Colon Cancer Screening-Colonoscopy 1968 Depression Screening 1968 Hepatitis C Screening 1968 DTaP/Tdap/Td Vaccine (1 - Tdap) 1979 Hepatitis B Screening 1986 Regular Well Visit/Exam 18-64 1986 Zoster Vaccine (1 of 2) 2018 Influenza Vaccine (Season Ended) 2025 Pneumococcal vaccine <65 Aged Out No longer eligible based on patient's age to complete this topic Insurance [facility] Care Teams Bearing Ring Assembler Relationship Specialty Start Date End Date Venessa De Jesus NP [facility] [address] AM[address] [place] [id number] PCP - General Nurse Practitioner 06/28/24
--- OUTSIDE RECORDS SUMMARY | 2025-02-13 19:57 | XMS_ITS | Referral Summary ---
Author Organization [facility] Address [address] [place] [id number] Care Team Providers Care Fish Flipper Name Role Phone Liza Venessa Bojorquez NP [...] contractions 02/08/2020 Symptomatic PVCs 12/10/2019 Palpitations 12/10/2019 Social History Tobacco Use Types Packs/Day Years Used Date Smoking Tobacco: Never Smokeless Tobacco: Never Tobacco Cessation:Counseling Given: Not Answered Comments Unknown Sex and Gender Information Value Date Recorded Sex Assigned at Not on file Legal Sex Female 2:55 PM CDT Gender Identity Not on file Sexual Orientation Not on file Last Filed Vital Signs Vital Sign Reading Time Taken Comments Blood Pressure 128/84 06/28/2024 9:31 AM 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 Pulse 91 06/28/2024 9:31 AM 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 Temperature 36.3 C (97.3 F) 08/15/2020 10:02 AM 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 Respiratory Rate 16 12/25/2022 2:04 PM CDT Oxygen Saturation 98% 06/28/2024 9:31 AM 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 Inhaled Oxygen Concentration - - Weight 95.3 kg (210 lb) 06/28/2024 9:31 AM 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 Height 165.1 cm (5' 5) 06/28/2024 9:31 AM 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 Body Mass Index 34.95 06/28/2024 9:31 AM 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 Plan of Treatment Not on file Insurance [facility] H[facility]/PPO Address: [facility] [address] [place] [address] Care Teams Fish Flipper Relationship Specialty Start Date End Date Venessa De Jesus NP [id number] [facility] [address] AM[address] [place] [id number] PCP - General Nurse Practitioner 06/28/24
--- OUTSIDE RECORDS SUMMARY | 2025-02-13 19:57 | XMS_ITS | Data Portability ---
Author Organization [employer], Main Office Address [address] [place] [id number] Assessment No assessment recorded. Plan of Treatment Reminders Order Date Submit Date Provider Last Modified By Organization Details Last Modified Time Details Appointments None recorded. Lab None recorded. Referral None recorded. Procedures None recorded. Surgeries None recorded. Imaging None recorded. Medication Orders bupropion HCl XL 150 mg 24 hr tablet, extended release 2022 023 [email or web address] 1 [id number], [address], [place], [id number], 3 12:45:21 Patient TargetsNo targets recorded. Patient InstructionsNo instructions recorded. Reason for Referral None Reported. Results Created Date Observation Date Name Description Value Unit Range Abnormal Flag Note LastModifiedBy Organization Detail LastModifiedTime 04/24/20 22 04/24/2022 COLOG UARD cologuard result reportable positi ve negati ve abnormal POSIT GRACE TEST RESUL T. A posit grace Colog uard resul t shoul d be follo wed with a colon oscop y or visua l exami natio n of the colon . The jasmin l value (refe rence range ) for this assay is negat grace. TEST DESCR IPTIO N: [place] site algor ithmi c mayra sis of stool DNA-b iomar kers with hemog lobin immun oassa y. Quant itati ve value s of indiv idual bioma rkers are not repor table and are not assoc iated with indiv idual bioma rker resul t refer ence range s. Colog uard is inten ded for color ectal cance r scree ludwin of adult s of eithe r sex, 45 years or older , who are at [facility] for color ectal cance r (CRC) . Colog uard has been appro robyn for use by the U.[place]. FDA. The perfo rmanc e of Colog uard was estab lishe d in a cross secti onal study of [facility] adult s aged 50-84 . Colog uard perfo rmanc e in patie nts ages 45 to 49 years was estim ated by sub-g kendallp mayra sis of near- age group s. Colon oscop ies perfo rmed for a posit grace resul t may find as the most clini nelsy signi fican t lesio n: color ectal cance r [4.0% ], advan kamini adeno ma (incl uding sessi le josi diana polyp s great er than or equal to 1cm diame ter) [20%] or non- advan kamini adeno ma [31%] ; or no color ectal neopl willy [45%] . These estim ates are deriv ed from a prosp ectiv e cross -sect ional scree ludwin study of 0 indiv idual s at [facility] risk for color ectal cance r who were scree alesha with both Colog uard and colon oscop y. (Antonia Pineda et al, N Engl J Med 2014; 370(1 4):12 86-12 97.) Colog uard may produ ce a false negat grace or false posit grace resul t (no color ectal cance r or preca ncero us polyp prese nt at colon oscop y follo w up). A negat grace Colog uard test resul t does not guara ntee the absen ce of CRC or advan kamini adeno ma (pre- cance r). The curre nt Colog uard scree ludwin inter ronda is every 3 years . (Amer ican Cance r Socie ty and U.S. Multi -Soci ety Task Force ). Colog uard perfo rmanc e data in a 0 patie nt pivot al study using colon oscop y as the refer ence metho d can be acces sed at the follo wing locat ion: www.e xactl abs.c om/re sults . Addit ional descr iptio n of the Colog uard test proce ss, warni ngs and preca ution s can be found at www.c cadenu patricio.c om. Not Available [facility] (Cologuard Orders Only) [address], [place], [address], 04/29/2022 17:49:05 04/29/20 22 04/30/2022 VITAM IN B12/F OLATE , SERUM PANEL vitamin B12 414 pg/mL 200-11 00 normal Not Available [facility] [address] [address] [place], [address], 04/30/2022 02:50:40 04/29/2004/30/2022 VITAM IN B12/F OLATE , SERUM PANEL folate, serum 2.4 NG/mL low Refer ence Range Low: <3.4 Borde rline : 3.4-5 .4 Jasmin l: >5.4 Not Available [facility] [address] [address] [place], [address], 04/30/2022 02:50:40 04/29/20 22 04/30/2022 TSH TSH 1.94 mIU/L normal Refer ence Range > or = 20 Years 0.40- 4.50 Pregn sedrick Range s First trime ster 0.26- 2.66 Secon d trime ster 0.55- 2.73 Third trime ster 0.43- 2.91 Not Available [facility] [address] [address] [place], [address], 04/30/2022 02:50:40 04/29/20 22 04/30/2022 CBC (INCL UDES DIFF/ PLT) white blood cell count 9.0 thous and/u L 3.8-10 .8 normal Not Available [facility] [address] [address] [place], [address], 04/30/2022 02:50:39 04/29/20 22 04/30/2022 CBC (INCL UDES DIFF/ PLT) red blood cell count 4.24 dewayne on/uL 3.80-5 .10 normal Not Available [address], [address], 04/30/2022 02:50:39 04/29/20 22 04/30/2022 CBC (INCL UDES DIFF/ PLT) hemoglobin 13.0 g/dL 11.7-1 5.5 normal Not Available [address], [address], 04/30/2022 02:50:39 04/29/20 22 04/30/2022 CBC (INCL UDES DIFF/ PLT) hematocrit 39.2 % 35.0-4 5.0 normal Not Available [address], [address], 04/30/2022 02:50:39 04/29/20 22 04/30/2022 CBC (INCL UDES DIFF/ PLT) MCV 92.5 fL 80.0-1 00.0 normal Not Available [address], [address], 04/30/2022 02:50:39 04/29/20 22 04/30/2022 CBC (INCL UDES DIFF/ PLT) MCH 30.7 pg 27.0-3 3.0 normal Not Available [address], [address], 04/30/2022 02:50:39 04/29/20 22 04/30/2022 CBC (INCL UDES DIFF/ PLT) MCHC 33.2 g/dL 32.0-3 6.0 normal Not Available [address], [address], 04/30/2022 02:50:39 04/29/20 22 04/30/2022 CBC (INCL UDES DIFF/ PLT) RDW 12.6 % 11.0-1 5.0 normal Not Available [address], [address], 04/30/2022 02:50:39 04/29/20 22 04/30/2022 CBC (INCL UDES DIFF/ PLT) platelet count 304 thous and/u L 140-40 0 normal Not Available [address], [address], 04/30/2022 02:50:39 04/29/20 22 04/30/2022 CBC (INCL UDES DIFF/ PLT) MPV 10.5 fL 7.5-12 .5 normal Not Available [address], [address], 04/30/2022 02:50:39 04/29/20 22 04/30/2022 CBC (INCL UDES DIFF/ PLT) absolute neutrophils 5877 cells /uL 1500-7 800 normal Not Available [address], [address], 04/30/2022 02:50:39 04/29/20 22 04/30/2022 CBC (INCL UDES DIFF/ PLT) absolute lymphocytes 2241 cells /uL 850-39 00 normal Not Available [address], [address], 04/30/2022 02:50:39 04/29/20 22 04/30/2022 CBC (INCL UDES DIFF/ PLT) absolute monocytes 576 cells /uL 200-95 0 normal Not Available [address], [address], 04/30/2022 02:50:39 04/29/20 22 04/30/2022 CBC (INCL UDES DIFF/ PLT) absolute eosinophils 216 cells /uL 15-500 normal Not Available [address], [address], 04/30/2022 02:50:39 04/29/20 22 04/30/2022 CBC (INCL UDES DIFF/ PLT) absolute basophils 90 cells /uL 0-200 normal Not Available [address], [address], 04/30/2022 02:50:39 04/29/20 22 04/30/2022 CBC (INCL UDES DIFF/ PLT) neutrophils 65.3 % normal Not Available [address], [address], 04/30/2022 02:50:39 04/29/20 22 04/30/2022 CBC (INCL UDES DIFF/ PLT) lymphocytes 24.9 % normal Not Available [address], [address], 04/30/2022 02:50:39 04/29/20 22 04/30/2022 CBC (INCL UDES DIFF/ PLT) monocytes 6.4 % normal Not Available [address], [address], 04/30/2022 02:50:39 04/29/20 22 04/30/2022 CBC (INCL UDES DIFF/ PLT) eosinophils 2.4 % normal Not Available [address], [address], 04/30/2022 02:50:39 04/29/20 22 04/30/2022 CBC (INCL UDES DIFF/ PLT) basophils 1.0 % normal Not Available [address], [address], 04/30/2022 02:50:39 04/29/2004/30/2022 COMPR EHENS GRACE METAB OLIC PANEL glucose 92 mg/dL 65-99 normal Fasti ng refer ence inter ronda Not Available [address], [address], 04/30/2022 02:50:38 04/29/20 22 04/30/2022 COMPR EHENS GRACE METAB OLIC PANEL urea nitrogen (BUN) 11 mg/dL 7-25 normal Not Available [address], [address], 04/30/2022 02:50:38 04/29/20 22 04/30/2022 COMPR EHENS GRACE METAB OLIC PANEL creatinine 0.73 mg/dL 0.50-1 .03 normal Not Available [address], [address], 04/30/2022 02:50:38 04/29/20 22 04/30/2022 COMPR EHENS GRACE METAB OLIC PANEL eGFR 98 mL/mi n/1.7 3m2 > or = 60 normal The eGFR is based on the CKD-E PI 2020 equat ion. To calcu late the new eGFR from a previ ous Creat inine or Cysta tin C resul t, go to https ://vinicius momin.blanca kendrick/antonino martines s/ kdoqi /gfr% 5Fcal culat or Not Available [address], [address], 04/30/2022 02:50:38 04/29/20 22 04/30/2022 COMPR EHENS GRACE METAB OLIC PANEL BUN/creatini ne ratio not applic able (calc ) 6-22 Not Available [address], [address], 04/30/2022 02:50:38 04/29/20 22 04/30/2022 COMPR EHENS GRACE METAB OLIC PANEL sodium 136 mmol/ L 135-14 6 normal Not Available [address], [address], 04/30/2022 02:50:38 04/29/20 22 04/30/2022 COMPR EHENS GRACE METAB OLIC PANEL potassium 4.8 mmol/ L 3.5-5. 3 normal Not Available [facility] [address], [address], 04/30/2022 02:50:38 04/29/20 22 04/30/2022 COMPR EHENS GRACE METAB OLIC PANEL chloride 102 mmol/ L 98-110 normal Not Available [address], [address], 04/30/2022 02:50:38 04/29/20 22 04/30/2022 COMPR EHENS GRACE METAB OLIC PANEL carbon dioxide 26 mmol/ L 20-32 normal Not Available [address], [address], 04/30/2022 02:50:38 04/29/20 22 04/30/2022 COMPR EHENS GRACE METAB OLIC PANEL calcium 9.1 mg/dL 8.6-10 .4 normal Not Available [address], [address], 04/30/2022 02:50:38 04/29/20 22 04/30/2022 COMPR EHENS GRACE METAB OLIC PANEL protein, total 6.6 g/dL 6.1-8. 1 normal Not Available [address], [address], 04/30/2022 02:50:38 04/29/20 22 04/30/2022 COMPR EHENS GRACE METAB OLIC PANEL albumin 3.9 g/dL 3.6-5. 1 normal Not Available [address], [address], 04/30/2022 02:50:38 04/29/2004/30/2022 COMPR EHENS GRACE METAB OLIC PANEL globulin 2.7 g/dL_ (calc ) 1.9-3. 7 normal Not Available [address], [address], 04/30/2022 02:50:38 04/29/2004/30/2022 COMPR EHENS GRACE METAB OLIC PANEL albumin/glob ulin ratio 1.4 (calc ) 1.0-2. 5 normal Not Available [address], [address], 04/30/2022 02:50:38 04/29/20 22 04/30/2022 COMPR EHENS GRACE METAB OLIC PANEL bilirubin, total 0.4 mg/dL 0.2-1. 2 normal Not Available [address], [address], 04/30/2022 02:50:38 04/29/20 22 04/30/2022 COMPR EHENS GRACE METAB OLIC PANEL alkaline phosphatase 61 U/L 37-153 normal Not Available [address], [address], 04/30/2022 02:50:38 04/29/20 22 04/30/2022 COMPR EHENS GRACE METAB OLIC PANEL AST 15 U/L 10-35 normal Not Available [address], [address], 04/30/2022 02:50:38 04/29/20 22 04/30/2022 COMPR EHENS GRACE METAB OLIC PANEL ALT 13 U/L 6-29 normal Not Available [address], [address], 04/30/2022 02:50:38 04/29/20 22 04/30/2022 LIPID PANEL , STAND PATRICIO cholesterol, total 192 mg/dL <200 normal Not Available [address], [address], 04/30/2022 02:50:38 04/29/20 22 04/30/2022 LIPID PANEL , STAND PATRICIO HDL cholesterol 49 mg/dL > or = 50 low Not Available [address], [address], 04/30/2022 02:50:38 04/29/20 22 04/30/2022 LIPID PANEL , STAND PATRICIO triglyceride s 185 mg/dL <150 high Not Available [facility] [address] [place] [address], [address], 04/30/2022 02:50:38 04/29/20 22 04/30/2022 LIPID PANEL , STAND PATRICIO LDL-choleste rol 112 mg/dL _(delmis c) high Refer ence range : <100 Dewayne able range <100 mg/dL for prima ry preve ntion ; <70 mg/dL for patie nts with CHD or diabe tic patie nts with > or = 2 CHD risk facto rs. LDL-C is now calcu lated using the Akila n-Hop kins calcu jayson n, which is a valid ated novel metho d provi kieran maxwell r accur acy than the Fried majo equat ion in the estim ation of LDL-C . Akila zhu SS et al. TA. 2013; 310(1 9): 2061- 2068 (http ://ed ucati on.[employer]. Emu Messenger/f aq/FA Q164) Not Available [address], [place], [address], 04/30/2022 02:50:38 04/29/20 22 04/30/2022 LIPID PANEL , STAND PATRICIO chol/HDLC ratio 3.9 (calc ) <5.0 normal Not Available [facility] [address] [place] [address], [address], 04/30/2022 02:50:38 04/29/20 22 04/30/2022 LIPID PANEL , STAND PATRICIO non HDL cholesterol 143 mg/dL _(delmis c) <130 high For patie nts with diabe jhonny plus 1 major ASCVD risk facto r, treat ing to a non-H DL-C goal of <100 mg/dL (LDL- C of <70 mg/dL ) is consi dered a thera peuti c optio n. Not Available [facility] [address], [place], [address], 04/30/2022 02:50:38 01/07/20 23 01/06/2023 MAMMO , scree ludwin, digit al, bilat eral No observ ation record ed. [facility] [address], [place], [address], 01/07/2023 08:44:13 02/11/2002/10/2023 MAMMO , diagn ostic , digit al, unila teral No observ ation record ed. [email or web address] [facility] [address], [place], [address], 02/10/2023 10:57:38 08/30/19 24 08/29/2023 CT, chest + abdom en + pelvi s, w/ contr ast No observ ation record ed. [email or web address] [facility] [address], [place], [address], 10/16/2023 12:32:57 08/30/19 24 08/29/2023 CT, chest + abdom en + pelvi s, w/ contr ast No observ ation record ed. [email or web address] [facility] [address], [place], [address], 09/18/2023 08:13:10 Result Notes None recorded. 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 Not Available [facility] 3 22:06:16 History of multiple allergies 308205540 Active 2019 Not Available [facility] 3 22:06:17 Elevated blood-pre ssure reading without diagnosis of hypertens ion 395443077 Completed 201903/28/2021 Not Available [facility] 3 22:06:17 Tinnitus of right ear 27936012638 08 Active 2019 Not Available [facility] 3 22:06:17 Hypertens grace disorder 98393910 Active 2019 Not Available [facility] 3 22:06:17 Hypertrig lyceridem ia 779905586 Active 2020 Not Available [facility] 3 22:06:17 Folic acid deficienc y 318590070 Active 2021 Not Available [facility] 3 22:06:17 Colorecta l cancer detected by DNA-based stool screening 751423878 Active 2021 Not Available [facility] 3 22:06:17 Anxiety 36387726 Active 2022 Paige Spicer MD [address], [place], [address] , [facility] 3 09:02:21 Nodule of lung 905464713 Active 2022 JEANIE Lopez [address], [address], [place], [address] , [employer] [facility] [employer] [facility] 3 12:19:56 Ventricul ar premature complex 478361361 Active 2022 JEANIE Lopez [address], [address], [place], [address] , [employer] [facility] 3 12:21:04 Essential hypertens ion 47904793 Active 2022 JEANIE Lopez [address], [place], [address] , [employer] [facility] 3 12:23:20 Seasonal allergy 951933216 Active 2022 JEANIE Lopez [address], [place], [address] , [employer] [facility] 3 12:25:41 Obese 506616341 Active 2022 JEANIE Lopez [address], [place], [address] , [employer] [facility] [employer] [facility] 12:48:08 Problem Notes None recorded. Procedures Surgical History Date Name Laterality Status Provider Name and Address Organization Details Recorded Time 07/10/20 bone density scan completed Not Available [facility] 09/25/2022 22:05:28 06/07/20 mammography completed Not Available [facility] 09/26/19 22:05:28 Colonoscopy completed Not Available [facility] 09/25/2022 22:05:28 Imaging Results None recorded. Procedure Notes None recorded. Medical Equipment None Reported. Allergies Allergen ID Allergen Name Allergen Category Reaction Reaction Severity Criticality Documentation Date Start Date Code Code System Note Provider Name and Address Organization Details Recorded Time 43821 Product containin g penicilli n (product) medicatio n hives Not available Not available 09/25/2022 52934 8001 SNOMED Not Available [facility] 22:07:57 Medications Name Sig Start Date Stop Date Status Note LastModified by Organization Details LastModified Time ketoconazol e 2 % shampoo USE SHAMPOO 2-3 TIMES A WEEK NEEDED FOR ITCHING. LEAVE ON FOR 5-10 MINUTES BEFORE RINSING 05/22 completed Not Available Not Available Not Available azithromyci n 250 mg tablet TAKE 2 TABLETS (500 MG) BY ORAL ROUTE ONCE DAILY FOR 1 DAY THEN 1 TABLET (250 MG) BY ORAL ROUTE ONCE DAILY FOR 4 DAYS 04/02 completed Not Available Not Available Not Available alprazolam 0.5 mg tablet TAKE 1 TABLET BY MOUTH EVERY DAY NEEDED active Not Available Not Available No t Available lisinopril 10 mg tablet TAKE 1 TABLET BY MOUTH EVERY DAY active Not Available Not Available No t Available folic acid 1 mg tablet Take 1 tablet every day by oral route for 30 days. 11/06 completed Not Available Not Available Not Available montelukast 10 mg tablet TAKE 1 TABLET BY MOUTH EVERY DAY AT BEDTIME active Not Available Not Available No t Available alprazolam 2 mg tablet TAKE 1 TABLET BY MOUTH ONE HOUR PRIOR TO PROCEDURE active Not Available Not Available No t Available oxycodone-a cetaminophe n 7.5 mg-325 mg tablet TAKE 2 TABLET BY MOUTH ONE HOUR PRIOR TO PROCEDURE 05/26 completed Not Available Not Available Not Available methylpredn isolone 4 mg tablets in a dose pack FOLLOW PACKAGE DIRECTION S 11/06 completed Not Available Not Available Not Available clobetasol 0.05 % scalp solution APPLY TOPICALLY TO THE SCALP EVERY DAY. NO MORE THAN 5 OUT OF 7 DAYS EVERY WEEK active Not Available Not Available No t Available doxycycline hyclate 100 mg tablet 05/26 completed Not Available Not Available Not Available bupropion HCl XL 150 mg 24 hr tablet, extended release TAKE 1 TABLET BY MOUTH EVERY DAY active Not Available Not Available No t Available fenofibrate 160 mg tablet TAKE 1 TABLET BY MOUTH EVERY DAY 10/16 completed Not Available Not Available Not Available Zyrtec Take 1 po daily 2019 active Not Available Not Available Not Avai lable Afluria Qd 2018- (36 mos up)(PF)60 mcg (15 mcg x4)/0.5 mL IM syringe active Not Available Not Available N ot Available Fluarix Quad (PF) 60 mcg (15 mcg x 4)/0.5 mL IM syringe ADM 0.5ML IM UTD 03/28 completed Not Available Not Available Not Available Sutab 1.479-0.188 -0.225 gram tablet DIRECTED 11/06 completed Not Available Not Available Not Available Vitals Date Recorded Body mass index (BMI) Body height Oxygen saturation Oxygen saturation in Arterial blood by Pulse oximetry Heart rate Body temperature Body weight Systolic And Diastolic Provider Name and Address Organization Details Last Updated DateTime 2 32.6 kg/m2 167.64 cm 98 % 98 % 73 /min 96.4 [degF] 12044.6 6 g 124/84 mm[Hg] Not Available [facility] 3 22:05:57 Date Recorded Body height Body mass index (BMI) Body weight Body temperature Heart rate Oxygen saturation Oxygen saturation in Arterial blood by Pulse oximetry Systolic And Diastolic Provider Name and Address Organization Details Last Updated DateTime 3 167.64 cm 31.3 kg/m2 23986.9 2 g 98.9 [degF] 95 /min 99 % 99 % 125/80 mm[Hg] MEREDITH [facility] [employer] 3 11:49:20 Date Recorded Body mass index (BMI) Body height Oxygen saturation Oxygen saturation in Arterial blood by Pulse oximetry Heart rate Body temperature Body weight Systolic And Diastolic Provider Name and Address Organization Details Last Updated DateTime 2 32.4 kg/m2 167.64 cm 98 % 98 % 89 /min 97.7 [degF] 84086.0 7 g 122/80 mm[Hg] Not Available [facility] 3 22:05:57 Date Recorded Body mass index (BMI) Body height Oxygen saturation Oxygen saturation in Arterial blood by Pulse oximetry Heart rate Body temperature Body weight Systolic And Diastolic Provider Name and Address Organization Details Last Updated DateTime 2 31.8 kg/m2 167.64 cm 98 % 98 % 97 /min 97.6 [degF] 26254.7 g 138/90 mm[Hg] Not Available [facility] 3 22:05:57 Date Recorded Body height Body mass index (BMI) Body weight Body temperature Heart rate Oxygen saturation Oxygen saturation in Arterial blood by Pulse oximetry Systolic And Diastolic Provider Name and Address Organization Details Last Updated DateTime 3 167.64 cm 33.9 kg/m2 11443.4 g 98 [degF] 78 /min 98 % 98 % 136/83 mm[Hg] [facility] 3 10:42:48 Social History Question Answer Notes LastModified by [employer] Details LastModified Time Tobacco Smoking Status Never Smoker Therese [email or web address] 11/06/2022 11:35:29 What Is Your Level Of Caffeine Consumption? Occasional [id number] Information not available 09/25/2022 What Type Of Diet Are You Following? REGULAR [id number] Information not available 09/25/2022 What Was The Date Of Your Most Recent Tobacco Screening? 05/22/2022 [email or web address] Information not available 11/06/2022 What Is Your Relationship Status? [id number] Information not available 09/25/2022 Has Tobacco Cessation Counseling Been Provided? No [email or web address] Information not available 11/06/2022 Have You Recently Traveled Abroad? No [email or web address] Information not available 11/06/2022 Sex: Female Functional Status Question Answer Note LastModified by [employer] Details LastModified Time Do you use any illicit or recreational drugs? No Information not available 11/06/2022 Do you or have you ever used any other forms of tobacco or nicotine? No [email or web address] Information not available 11/06/2022 What is your level of alcohol consumption? None [id number] Information not available 09/25/2022 Mental Status None recorded. Family History Relationship Description Onset Age of this Age Resolved Age Notes LastModified by Organization Details LastModified Time Father Heart disease [id number] Not available 09/25/2022 22:05:29 Father Hypertensive disorder [id number] Not available 09/25/2022 22:05:29 Mother Hypertensive disorder [id number] Not available 09/25/2022 22:05:29 Mother Diabetes mellitus [id number] Not available 09/25/2022 22:05:29 Sister Rheumatoid arthritis [email or web address] Not available 2022 11:35:28 Medical History Condition Response ALLERGIES/HAYFEVER Y HEADACHES/MIGRAINES Y ANXIETY DISORDER Y DEPRESSION (INCLUDING POST ) Y EAR OR HEARING PROBLEMS Y Gynecological HistoryNo gynecological history recorded. Obstetrics History GPAL:G 0 P 0 0 0 0 Immunizations Vaccine Type Date Status Note Provider Nam e and Address Organization Details Recorded Time Influenza, split virus, quadrivalent, PF 05/26/2023 completed JEANIE Lopez [address] [place], [place] [address] [address], [place], [address], [facility] 05/26/2023 12:45:21 Past Encounters Encounter ID Performer Location Encounter Start Date Encounter Closed Date Diagnosis/Indication Diagnosis SNOMED-CT Code Diagnosis ICD10 Code Diagnosis Note [id number] Paige Spicer MD [facility] [place] [facility] [place] [address] 03/28/2021 00:00:00 03/28/2021 09:28:03 [id number] Paige Spicer MD [facility] [address] [place] [address] 10/16/2021 00:00:00 10/16/2021 12:11:21 [id number] [facility] ic_[facility] [place] [address] [place] [address] 04/02/2022 00:00:00 04/02/2022 10:58:28 [id number] _ATHN_MIGR ATION_1 _ATHENA_M IGRATION_ DEFAULT_1 _1 , 05/22/2022 00:00:00 05/22/2022 16:09:38 [id number] JEANIE Lopez [facility] Primary Care [facility] [address] [facility] [address] [facility] [place] [address] 11/06/2022 11:34:12 11/06/2022 12:40:18 Nodule of lung 369353177 R91.1 Reviewed hospital notes.CXR (09/08/22) normal; CTA chest/abdo men/pelvis (09/08/22) 4mm right lower lobe nodule; recommende d repeat CT in [address] 08/2023. 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 Followed by cardiology (Dr. Samuels).Lamonte qiu has recent cardiac work-up at ER 09/08/22, negative for acute coronary syndrome. Anxiety [id number] F41.9 Alprazolam 0.5 daily PRN. States she does not have to take it daily, sometimes will even cut it in half. Essential hypertension [id number] I10 Stable. Continue lisinopril 10mg daily. Seasonal allergy [id number] J30.2 Continue montelukas t, zyrtec and flonase. [id number] Zaira Gonzalez MD [facility] Primary Care [facility] [address] [facility] [address] [place] [address] 05/26/2023 10:26:21 05/26/2023 12:55:36 Administration of influenza vaccine [id number] Z23 Adult heal th examination [id number] Z00.00 Labs last completed with cardiology /hospital. Will look at records. Covid vaccines- recommende d boosterFlu vaccine- updated todayTetan us vaccine- 2022; update in 2032 Pap- 2023 wnlColonos copy- 2021 (normal); repeat in 2031Mammog randall- diagnostic mammogram/ [place] (12/2022); will repeat in bruary 2023 Recommende d routine eye exams and dental cleanings. Obese [id number] E66.9 Patient mainly complains of over-eatin g and inability to control it. She is not exhibiting any of binge eating or anorexia, but states she has been more stressed and this could be playing a role. She has a who does not eat well due to losing salivary glands from cancer and daughter with an eating disorder so she thinks trying to help them has also changed her attitude towards food.Will do trial of bupropion to hopefully decrease cravings. Nodule of lung [id number] R91.[address] in August 2023. 11/06/22: Reviewed hospital notes.CXR (09/08/22) normal; CTA chest/abdo men/pelvis (09/08/22) 4mm right lower lobe nodule; recommende d repeat CT in [address] 08/2023. Health Concerns Section Related Observation LastModified by Organization Detai ls LastModified Time None Recorded Concern Status LastModified by Organization Details LastModified Time None Recorded Advance Directives Directive None Recorded Payers Insurance Date Sequence Insurance Name Policy Number Policy Nicole Covered Member ID Nicole Member ID Guarantor Name 05/23/2023 1 [facility] - [facility] - DOS PRIOR TO 2024 (PPO) Andrews Blum [id number] JUAREZ Ghislaine Blum Notes Date Note Type Note Provider Name and Address Organization Details Recorded Time 11/06/2022 text/html Pt. here to establish care, transferring from [facility].She is also established with cardiology and gynecology.She states she was in the hospital in August for chest pain, she states while she was there they found an 11mm cavity in her uterus which she is being followed by gynecology. She states they also found a nodule in one of her lungs and wanted her to have a f/u scan in a year. She states she also saw on the report that there was a cyst on her kidney. JEANIE Lopez [address] [facility], [facility] [address], [place], [address], [place] [facility] 11/06/2022 13:21:48 05/26/2023 text/html Pt. here for annual physical.She states she has been having trouble with overheating. She states she gets cravings and wants to continue eating even when she knows she is full. JEANIE Lopez [address] [facility], [facility] [address], [place], [address], [facility] 05/26/2023 12:51:52 OBGyn Episode No OBEpisode recorded.
[2025-02-13 20:01] VITALS: BP 134/93; PULSE 110; RESP 20; TEMP 36.3; O2SAT 98
[2025-02-13 20:21] LABS: Hematocrit 41.0 % (37.0-47.0); Hemoglobin 13.7 g/dL (12.0-15.0); Immature Granulocyte Percent A 0.3 % (0-0.5); Lymphocytes Absolute Auto 2.82 K/mm3 (0.9-3.2); Mean Corpuscular HGB Conc 33.4 g/dl (32-36); Mean Corpuscular Hemoglobin 30.2 pg (26-34); Mean Corpuscular Volume 90.3 fl (80-100); Nucleated Red Blood Cells Absolute Auto 0.000 K/mm3 (0.0-0.012); Nucleated Red Blood Cells Perc 0.0 % (0.0-0.2); Platelet Count Result 329 k/mm3 (150-375); Red Blood Count 4.54 M/mm3 (4.2-5.4); White Blood Count 11.9 K/mm3 (4.5-10.0)
[2025-02-13 20:33] LABS: Alanine Aminotransferase 35 U/L (6-35); Albumin Level 4.6 g/dL (3.5-5.1); Alkaline Phosphatase 89 U/L (38-126); Anion Gap 13 mmol/L (4-12); Aspartate Amino Transferase 36 U/L (14-36); Bilirubin,Total 0.3 mg/dL (0.2-1.3); Blood Urea Nitrogen 11 mg/dL (7-17); Calcium 9.7 mg/dL (8.4-10.2); Carbon Dioxide 21 mmol/L (22-30); Chloride 100 mmol/L (98-107); Estimated Glomerular Filt Rate > 60; Glucose 134 mg/dL (65-110); Lipase 110 U/L (23-300); Potassium 3.5 mmol/L (3.4-5.0); Sodium 134 mmol/L (137-145); Total Protein 7.8 g/dL (6.3-8.2)
[2025-02-13 20:44] LABS: INR 0.9; Prothrombin Time 12.6 Seconds (11.1-14.7)
[2025-02-13 20:45] LABS: Partial Thromboplastin Time 27.1 Seconds (22.3-36.8); Troponin I < 0.012 ng/mL (0.000-0.034)
[2025-02-13 21:38] VITALS: BP 136/79; PULSE 87; RESP 18; TEMP 36.6; O2SAT 98
--- OUTSIDE RECORDS SUMMARY | 2025-02-13 22:26 | XMS_ITS | Referral Summary ---
Author Organization [facility] Address [address] [place] [id number] Care Team Providers Care Assembly Line Robot Operator Name Role Phone Liza Venessa Bojorquez NP [...] Comments Blood Pressure 128/84 06/28/2024 9:31 AM SHIPPING/RECEIVING MANAGER Pulse 91 06/28/2024 9:31 AM SHIPPING/RECEIVING MANAGER Temperature 36.3 C (97.3 F) 08/15/2020 10:02 AM SHIPPING/RECEIVING MANAGER Respiratory Rate 16 12/25/2022 2:04 PM CDT Oxygen Saturation 98% 06/28/2024 9:31 AM SHIPPING/RECEIVING MANAGER Inhaled Oxygen Concentration - - Weight 95.3 kg (210 lb) 06/28/2024 9:31 AM SHIPPING/RECEIVING MANAGER Height 165.1 cm (5' 5) 06/28/2024 9:31 AM SHIPPING/RECEIVING MANAGER Body Mass Index 34.95 06/28/2024 9:31 AM SHIPPING/RECEIVING MANAGER Plan of Treatment Not on file Insurance [facility] Care Teams Assembly Line Robot Operator Relationship Specialty Start Date End Date Venessa De Jesus NP [id number] [facility] [place] [address] [address] [place] [id number] PCP - General Nurse Practitioner 06/28/24
--- OUTSIDE RECORDS SUMMARY | 2025-02-13 22:26 | XMS_ITS | Clinical Summary ---
Author Organization [facility] Address [address] [place] [id number] Care Team Providers Care Orthotist Name Role Phone Liza Venessa Bojorquez NP [...] Comments Blood Pressure 128/84 06/28/2024 9:31 AM TINSEL MACHINE OPERATOR Pulse 91 06/28/2024 9:31 AM TINSEL MACHINE OPERATOR Temperature 36.3 C (97.3 F) 08/15/2020 10:02 AM TINSEL MACHINE OPERATOR Respiratory Rate 16 12/25/2022 2:04 PM CDT Oxygen Saturation 98% 06/28/2024 9:31 AM TINSEL MACHINE OPERATOR Inhaled Oxygen Concentration - - Weight 95.3 kg (210 lb) 06/28/2024 9:31 AM TINSEL MACHINE OPERATOR Height 165.1 cm (5' 5) 06/28/2024 9:31 AM TINSEL MACHINE OPERATOR Body Mass Index 34.95 06/28/2024 9:31 AM TINSEL MACHINE OPERATOR Plan of Treatment Health Maintenance Due Date [...] patient's age to complete this topic Insurance [facility] Care Teams Orthotist Relationship Specialty Start Date End Date Venessa De Jesus NP [facility] [address] [place] [address] [place] [id number] PCP - General Nurse Practitioner 06/28/24
--- NOTE | 2025-02-13 22:56 | ECG_ITS ---
Test Date: 2025-02-13 21:59:09 Measurements Intervals [place] Rate: 86 P: 33 GA: 139 QRS: 15 QRSD: 81 T: 97 QT: 333 QTc: 398 Interpretive Statements SINUS RHYTHM NONSPECIFIC ST & T-WAVE ABNORMALITY Compared to ECG 02/13/2025 20:08:11 Sinus tachycardia no longer present T-wave abnormality still present Electronically Signed On 02-14-2025 10:52:57 CDT by Corey Eagle M.D.
[2025-02-13 22:58] VITALS: BP 149/95; PULSE 89; RESP 18; TEMP 36.5; O2SAT 96
--- NOTE | 2025-02-13 23:01 | ED.ARRPALP ---
HPI - Arrhythmia/Palpitations General Chief Complaint: Arrhythmia/Palpitations Stated Complaint: heart racing, back pain Time Seen by Provider: 02/13/25 21:53 History of Present Illness HPI narrative: 54-year-old female with a past medical history including frequent PVCs, anxiety disorder, chronic back pain. She presents to the emergency department with complaints of feeling anxious and having a panic attack earlier. She describes the panic attack as feeling hot and flushed with some chest discomfort as well as tingling in both upper extremities. [place] lightheaded and dizzy. Sporadic in nature this is been a longstanding issue for her. She takes Xanax at home and took 1 prior to arrival. She wants to make sure that she does not have any heart issues but is more concerned that this is just anxiety. She is otherwise awake alert and answering all questions appropriately. No symptoms at this time and was being precautions. No recent hospitalizations, no recent health issues. No medication changes recently. No fever, chills, shortness a breath, nausea, vomiting, abdominal pain or back pain other than her chronic symptoms. Related Data Home Medications ?Medication ?Instructions ?Recorded ?Confirmed ?Last Taken ?Type cetirizine 10 mg tablet (Zyrtec) 10 mg PO DAILY 09/08/22 10/27/23 1 Day Ago History ~09/07/22 10 mg Allergies Allergy/AdvReac Type Severity Reaction Status Date / Time penicillin G Allergy Unknown Rash Verified 09/24/24 09:18 Penicillins Allergy Unknown Rash Verified 09/24/24 09:18 pollen extracts Allergy Unknown Unknown Verified 09/24/24 09:18 shingles Allergy Mild Fatigued Uncoded 09/24/24 09:18 Review of Systems Review of Systems: As reviewed above in HPI PMFSH Past Medical History Medical History Hyperlipidemia Depression Vertigo TMJ (dislocation of temporomandibular joint) Family history of premature CAD Hypertension Anxiety Seasonal allergies Irregular heart rate Surgical History Surgical History No significant past surgical history Family History Family History Father Hypertension Patient's father is in good health, Onset Age: 77 Family history of diabetes mellitus in first degree relative Diabetes mellitus Family history of cardiovascular disease Mother Hypertension Patient's mother is in good health, Onset Age: 77 Family history of diabetes mellitus in first degree relative Diabetes mellitus Grandparent Carcinoma of colon, Onset Age: 88 Father Heart disease Had CABG in his 40s or 50s, stents, and of a heart attack Sibling Thoracic aortic dissection Social History Social History Smoking status: Never smoker Second hand tobacco smoke exposure: No Alcohol intake: current Gender identity (if verbalized by the patient): Female Exam Narrative: GENERAL: [Well-appearing, well-nourished, and in no acute distress.] HEAD: [Normocephalic, atraumatic.] EYES: [PERRLA and EOMI.] ENT: Nares clear, no rhinorrhea or epistaxis. Mucous membranes moist. NECK: Supple. CHEST: [Clear to auscultation. No respiratory distress.] HEART: [Regular rate and rhythm]. No murmur heard. [Normal peripheral pulses.] ABDOMEN: [Soft, nondistended], [nontender], [No rigidity or guarding] EXTREMITIES: Normal range of motion. [No edema.] SKIN: Warm, dry, no rash. NEURO: [No focal deficits]. Alert and oriented [x3.] PSYCH: [Normal mood and affect.] Course Vital Signs Vital signs: Vital Signs Temperature 36.3 C L 02/13/25 20:01 Pulse Rate 110 H 02/13/25 20:01 Respiratory Rate 20 02/13/25 20:01 Blood Pressure 134/93 H 02/13/25 20:01 Pulse Oximetry 98 02/13/25 20:01 Oxygen Delivery Room Air 02/13/25 20:01 Temperature 36.3 C L 02/13/25 23:58 Pulse Rate 98 02/13/25 23:58 Respiratory Rate 18 02/13/25 23:58 Blood Pressure 141/82 H 02/13/25 23:58 Pulse Oximetry 98 02/13/25 23:58 Oxygen Delivery Room Air 02/13/25 21:38 MDM - Arrhythmia/Palpitations MDM Narrative Medical decision making narrative: 54-year-old female with a past medical history including frequent PVCs, anxiety disorder, chronic back pain. She presents to the emergency department with complaints of feeling anxious and having a panic attack earlier. She describes the panic attack as feeling hot and flushed with some chest discomfort as well as tingling in both upper extremities. [place] lightheaded and dizzy. Sporadic in nature this is been a longstanding issue for her. She takes Xanax at home and took 1 prior to arrival. She wants to make sure that she does not have any heart issues but is more concerned that this is just anxiety. She is otherwise awake alert and answering all questions appropriately. No symptoms at this time and was being precautions. No recent hospitalizations, no recent health issues. No medication changes recently. No fever, chills, shortness a breath, nausea, vomiting, abdominal pain or back pain other than her chronic symptoms. Patient is not any acute distress, states that she feels very anxious that feels better after taking Xanax at home. Initially tachycardic in triage but this resolved without any interventions. Normal sinus rhythm on the monitor without any ectopy. She has strong symmetric pulses, clear breath sounds, no murmur on auscultation. Vital signs show some stable hypertension but no other concerns. Cardiac workup was ordered this time including serial troponins, EKG, chest x-ray, lipase, CBC, CMP. She was placed on noodle catalyst maker and re-evaluated. She states she has a strong family history of cardiac pathologies and was worried about that when she was having the panic attack at home. Initial and delta troponin are negative, patient remains hemodynamically stable and asymptomatic. Workup shows a slight white count of 11.9 but no infectious pathology and likely reactive. No anemia or platelet concerns. Normal coag panel. Electrolytes are unremarkable. Normal creatinine and glucose. Normal LFTs. Normal lipase. Chest x-ray with no acute cardiopulmonary process. EKG was sinus rhythm, no ST segment elevations, depressions. Patient is safe for discharge home with outpatient primary care provider follow-up for further risk stratification. Patient given return precautions and discharge instructions. Medical Records Attestation: I reviewed the patient's medical records. Lab Data Attestation: I reviewed the patient's lab results. 02/13/25 20:16 02/13/25 20:16 Labs: Lab Results 02/13/25 02/13/25 Range/Units 20:16 22:58 WBC 11.9 H (4.5-10.0) K/mm3 RBC 4.54 (4.2-5.4) M/mm3 Hgb 13.7 (12.0-15.0) g/dL Hct 41.0 (37.0-47.0) % MCV 90.3 (80-100) fl MCH 30.2 (26-34) pg MCHC 33.4 (32-36) g/dl RDW 12.8 (11.5-14.5) % Plt Count 329 (150-375) k/mm3 MPV 10.3 (7.4-10.4) fl Immature Gran % (Auto) 0.3 (0-0.5) % Neut % (Auto) 67.5 (45.5-73.1) % Lymph % (Auto) 23.7 (18.3-44.2) % [place] % (Auto) 6.0 (2.6-8.5) % Eos % (Auto) 1.7 (0-4.4) % Baso % (Auto) 0.8 (0.2-1.2) % Lymph # (Auto) 2.82 (0.9-3.2) K/mm3 [place] # (Auto) 0.7 H (0.1-0.6) K/mm3 Eos # (Auto) 0.2 (0-0.3) K/mm3 Baso # (Auto) 0.1 (0.0-0.1) K/mm3 Abs Immat Gran (auto) 0.03 (0.00-0.031) K/mm3 Absolute Neuts (auto) 8.1 H (1.3-6.7) K/mm3 Absolute Nucleated RBC 0.000 (0.0-0.012) K/mm3 Nucleated RBC % 0.0 (0.0-0.2) % PT 12.6 (11.1-14.7) Seconds INR 0.9 APTT 27.1 (22.3-36.8) Seconds Sodium 134 L (137-145) mmol/L Potassium 3.5 (3.4-5.0) mmol/L Chloride 100 (98-107) mmol/L Carbon Dioxide 21 L (22-30) mmol/L Anion Gap 13 H (4-12) mmol/L BUN 11 D (7-17) mg/dL Creatinine 0.79 (0.7-1.0) mg/dL Estim Creat Clear Calc Not Reportable Estimated GFR > 60 (59 - ) Glucose 134 H (65-110) mg/dL Calcium 9.7 (8.4-10.2) mg/dL Total Bilirubin 0.3 (0.2-1.3) mg/dL AST 36 (14-36) U/L ALT 35 (6-35) U/L Alkaline Phosphatase 89 (38-126) U/L Troponin I < 0.012 < 0.012 (0.000-0.034) ng/mL Total Protein 7.8 (6.3-8.2) g/dL Albumin 4.6 (3.5-5.1) g/dL Lipase 110 (23-300) U/L Imaging Data Attestation: I personally reviewed and interpreted this imaging study as follows: My impression: Impressions Chest X-Ray 02/13/25 20:34 IMPRESSION: No acute cardiopulmonary process. ECG Data EKG #1: Attestation: I personally reviewed and interpreted this ECG as follows: ECG completion date: 02/14/25 ECG completion time: 21:59 Prior ECG tracings: available for review Interpretation: No ST segment elevations, depressions or inversions. QTC 398, OH interval 139, rate of 86 beats per minute. No ST segment elevations, ectopy. No interval change compared to recent EKGs. Normal sinus rhythm. Discharge Plan Discharge Clinical Impression: Anxiety, Chest pain Patient Disposition: Home Condition: Stable Instructions: Antibiotic Form, Chest Pain (DC), Anxiety (ED) Additional Instructions: Your laboratory studies are reassuring here, no signs of organ damage, no signs of any heart issues with undetectable cardiac enzymes. No electrolyte derangements or dehydration. No signs of infection or pneumonia. Follow-up with regular primary care provider on outpatient basis. Return with any recurrent or emergent concerns at any time. Patient Language: Tajik Prescriptions: No Action fluticasone propionate [Flonase Allergy Relief] 50 mcg/actuation spray,suspension 2 spray intranasal DAILY Qty: 18 3RF Rx Instructions: administer into each nostril cetirizine [Zyrtec] 10 mg Tablet 10 mg PO DAILY cetirizine [All Day Allergy (cetirizine)] 10 mg tablet 10 mg PO DAILY PRN (Reason: allergy symptoms) Qty: 30 5RF lisinopril 10 mg tablet 10 mg PO DAILY Qty: 30 5RF bupropion HCl [Wellbutrin XL] 300 mg tablet extended release 24 hr 300 mg PO QAM Qty: 90 1RF alprazolam 0.5 mg tablet 0.5 mg PO DAILY PRN (Reason: Anxiety) Qty: 30 0RF dicyclomine 20 mg tablet See Rx Instructions .ROUTE .COMPLEX Qty: 30 0RF Dose Instruction: TAKE 1 TABLET BY MOUTH FOUR TIMES DAILY NEEDED FOR ABDOMINAL CRAMPS Rx Instructions: TAKE 1 TABLET BY MOUTH FOUR TIMES DAILY NEEDED FOR ABDOMINAL CRAMPS omeprazole 20 mg capsule,delayed release(DR/EC) 20 mg PO DAILY Qty: 90 1RF Follow-up/Referrals: Jamari Mackey MD [Primary Care Provider] - Time of Disposition: 00:17
[2025-02-13 23:27] LABS: Troponin I < 0.012 ng/mL (0.000-0.034)
[2025-02-13 23:58] VITALS: BP 141/82; PULSE 98; RESP 18; TEMP 36.3; O2SAT 98
[2025-02-14 00:24] VITALS: BP 141/82; PULSE 87; RESP 18; TEMP 36.7; O2SAT 99
== END 2025-02-14 00:25 | disposition home or self-care (01) ==
PROVIDERS: Emergency Medicine; Emergency Provider Student in an Organized Health Care Education/Training Program; PCP Family Medicine
DX: F41.9 Anxiety disorder, unspecified (principal); R07.9 Chest pain, unspecified; E78.5 Hyperlipidemia, unspecified; I10 Essential (primary) hypertension; F32.A Depression, unspecified; Z79.899 Other long term (current) drug therapy; R94.31 Abnormal electrocardiogram [ECG] [EKG]; R00.0 Tachycardia, unspecified
CPT/HCPCS: 36415; 71046; 80053; 83690; 84484; 85025; 85610; 85730; 93005; 99284